=== PATIENT | male | born 1940 | race Caucasian/White ===

== ENCOUNTER → 2017-05-19 16:53 | Outpatient (CLI) | payer MEDICARE, OTHER, SELFPAY ==
[2017-05-19 17:58] LABS: Hematocrit 45.5 % (40-54); Hemoglobin 15.7 g/dl (13.0-16.5); Mean Corp Hgb Conc 34.5 g/gl (32-36); Mean Corpuscular Hgb 31.8 pg (27.0-32.0); Mean Corpuscular Volume 92.3 fL (80-94); Mean Platelet Vol. 10.3 fl (6.2-12.0); Platelet Count 266 K/mm3 (150-450); RBC Distribution Width CV 13.4 % (11.6-14.6); RBC Distribution Width SD 44.3 fl (35.1-43.9); Red Blood Count 4.93 M/mm3 (4.6-6.2)
[2017-05-19 18:08] LABS: Scan Indicated on CBC? Y/N NO
[2017-05-19 18:24] LABS: ALB/GLOB Ratio 0.9 RATIO (0.9-2.4); AST(SGOT) 10 U/L (15-37); Alanine Aminotransfer ALT/SGPT 21 U/L (16-61); Albumin, Serum 3.4 g/dL (3.2-5.0); Alkaline Phosphatase 57 U/L (45-117); Anion Gap 10 (5-15); BUN 17 mg/dL (7-18); BUN/Creat Ratio 14.9 RATIO (10-20); Chloride 103 mmol/L (98-107); Cholesterol 172 mg/dL (200); Creatinine, Serum 1.14 mg/dL (0.70-1.30); EST Glomerular Filtration Rate 66 mL/min (>60); Est Glom Filt Rate - Afr Amer 80 mL/min (>60); Globulin 3.6 g/dL (2.2-4.2); Glucose 168 mg/dL (74-106); High Density Lipoprotein 31 mg/dL; Potassium 3.8 mmol/L (3.5-5.1); Sodium Level 138 mmol/L (136-145); Thyroid Stim Hormone (TSH) 4.47 uIU/mL (0.358-3.74); Triglycerides 356 mg/dL; Very Low Density Lipoprotein 71 mg/dL (5-40)
[2017-05-21 06:38] LABS: T4 Free Direct 1.12 ng/dL (0.76-1.46)
== END ==
PROVIDERS: Family Provider Family Medicine; PCP Family Medicine; Visit Provider Family Medicine
DX: J44.9 Chronic obstructive pulmonary disease, unspecified (principal); E11.65 Type 2 diabetes mellitus with hyperglycemia
CPT/HCPCS: 36415; 80053; 80061; 84439; 84443; 85027

== ENCOUNTER → 2017-08-17 16:40 | Outpatient (CLI) | payer MEDICARE, OTHER, SELFPAY ==
--- NOTE | 2017-08-17 16:40 | DT_ITS ---
This patient was seen during an EMR downtime August 15, 2017 - August 22, 2017. This patient may have a combination of paper and electronic documentation or all paper documentation. All documentation is viewable within the e-chart portion of [facility] for each patient visit.
[2017-08-21 15:37] LABS: Thyroid Stim Hormone (TSH) 4.52 uIU/mL (0.358-3.74)
[2017-08-21 15:38] LABS: T4 Free Direct 1.13 ng/dL (0.76-1.46)
== END ==
PROVIDERS: Family Provider Family Medicine; PCP Family Medicine; Visit Provider Family Medicine
DX: E03.9 Hypothyroidism, unspecified (principal)
CPT/HCPCS: 36415; 84439; 84443

== ENCOUNTER → 2018-04-03 15:32 | Outpatient (CLI) | payer MEDICARE, OTHER, SELFPAY ==
[2017-03-25 13:59] VITALS: BMI 34.4
--- NOTE | 2018-04-03 15:37 | RAD_ITS ---
STUDY: X-RAY CHEST REASON FOR EXAM: Male, 77 years old. Coronary artery disease. TECHNIQUE: PA and lateral views of the chest. COMPARISON: None. FINDINGS: The lungs are moderate expanded. Ill-defined airspace disease with stranding to suggest chronic disease and/or atelectasis noted in the anterior lung bases. Active inflammation/infection not excluded. Vaguely nodular 2 cm left suprahilar density on the frontal view is of uncertain etiology, possibly a summation artifact. There is no demonstrated pleural abnormality. The heart size is upper normal. Normal mediastinum and ambrosio. Normal visualized pulmonary arteries. There is atherosclerotic calcification of the aortic arch and descending thoracic aorta. Normal visualized thoracic spine. Normal visualized ribs, clavicles, and shoulders. There is no demonstrated abnormality of the visualized soft tissue structures of the upper abdomen. RAD/Chest PA and Lateral IMPRESSION: 1. Patchy airspace disease of probable chronic change or atelectasis in the anterior lung bases. Active inflammation/infection not excluded. 2. Summation artifact versus nodule in the left suprahilar tissues. Comparison with any previous outside studies would be useful. If none are available, one might consider shallow frontal oblique and/or apical lordotic/antilordotic views to determine if this is a real finding. 3. Heart size upper normal with calcified thoracic aorta. No CHF. Electronically Signed: Salomon Kohli MD at 19:52 EST , Service support ,
[2018-04-03 17:51] LABS: Absolute Lymphocyte Count 1.91 X10^3/ul (0.83-4.51); Basophil# 0.02 X10^3/uL; Basophil% 0.2 % (0-1); Eosinophil# 0.08 X10^3/uL; Eosinophils% 0.8 % (0-5); Hematocrit 45.8 % (40-54); Hemoglobin 15.7 g/dl (13.0-16.5); Lymphocyte # 1.91 X10^3/ul (4.0); Lymphocyte % 19.3 % (19-41); Mean Corp Hgb Conc 34.3 g/gl (32-36); Mean Corpuscular Hgb 31.2 pg (27.0-32.0); Mean Corpuscular Volume 91.1 fL (80-94); Mean Platelet Vol. 10.4 fl (6.2-12.0); Monocyte# 0.87 X10^3/uL; Monocyte% 8.8 % (0-10); Neutrophil # 7.02 X10^3/uL (2.7-7.7); Neutrophil % 70.7 % (47-70); Platelet Count 317 K/mm3 (150-450); RBC Distribution Width CV 13.5 % (11.6-14.6); RBC Distribution Width SD 44.6 fl (35.1-43.9); Red Blood Count 5.03 M/mm3 (4.6-6.2); White Blood Count 9.9 K/mm3 (4.4-11.0)
[2018-04-03 17:52] LABS: POSITIVE COUNT NO; POSITIVE DIFFERENTIAL NO; POSITIVE MORPHOLOGY NO
[2018-04-03 18:04] LABS: BNP,B-Type NATRIURETIC PEPTIDE 119.7 pg/mL (0-100)
[2018-04-03 18:09] LABS: ALB/GLOB Ratio 0.9 RATIO (0.9-2.4); AST(SGOT) 14 U/L (15-37); Alanine Aminotransfer ALT/SGPT 29 U/L (16-61); Albumin, Serum 3.3 g/dL (3.2-5.0); Alkaline Phosphatase 65 U/L (45-117); Anion Gap 12 (5-15); BUN 13 mg/dL (7-18); BUN/Creat Ratio 11.3 RATIO (10-20); Calcium,Total 8.9 mg/dL (8.5-10.1); Chloride 98 mmol/L (98-107); Creatinine, Serum 1.15 mg/dL (0.70-1.30); EST Glomerular Filtration Rate 65 mL/min (>60); Est Glom Filt Rate - Afr Amer 79 mL/min (>60); Globulin 3.7 g/dL (2.2-4.2); Glucose 137 mg/dL (74-106); Potassium 4.2 mmol/L (3.5-5.1); Sodium Level 135 mmol/L (136-145); Thyroid Stim Hormone (TSH) 3.58 uIU/mL (0.358-3.74)
--- OUTSIDE RECORDS SUMMARY | 2018-06-06 03:40 | XMS RPT_ITS ---
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7 TRUDI PEP Performed By: #### L503.6620 #### [facility] [address] [place], [address] CBC W/DIFF, AUTOMATED Collected: 04/03/2018 Status: F Source: LATOSHA 3:41 PM [facility] REPOSITORY TYPE CODE TESTS RESULT OUT OF RANGE REFERENCE UNITS LAB L100.1000 4.4-11.0 K/mm3 Normal WBC 9.9 LAB L100.1200 4.6-6.2 M/mm3 Normal RBC 5.03 LAB L100.1300 13.0-16.5 g/dl Normal HGB 15.7 LAB L100.1400 40-54 % Normal HCT 45.8 LAB L100.1500 80-94 fL Normal MCV 91.1 LAB L100.1600 27.0-32.0 pg Normal MCH 31.2 LAB L100.1700 32-36 g/gl Normal MCHC 34.3 LAB L100.1810 11.6-14.6 % Normal RDW CV 13.5 LAB L100.1820 35.1-43.9 fl High RDW SD 44.6 LAB L100.1900 150-450 K/mm3 Normal PLT 317 LAB L100.2000 6.2-12.0 fl Normal MPV 10.4 LAB L100.2100 47-70 % High NEUT% 70.7 LAB L100.2200 19-41 % Normal LY% 19.3 LAB L100.2300 0-10 % Normal MONO% 8.8 LAB L100.2400 0-5 % Normal EO% 0.8 LAB L100.2500 0-1 % Normal BASO% 0.2 LAB L100.2550 0.0-0.9 % Normal IM GRAN % 0.200 Result Comment: IG% - Immature Granulocytes (promyelocytes, myelocytes and metamyelocytes) > 1% indicates that a LEFT SHIFT is Present. LAB L100.2620 2.0-7.7 X10 3/uL Normal Absolute Neut 7.0 LAB L100.2720 0.83-4.51 X10 3/ul Normal Absolute Lymph 1.91 Performed By: #### L100.0100, L500.4050, L501.9520 #### [facility] [address] [place], [address] COMPREHENSIVE METABOLIC Collected: 04/03/2018 Status: F Source: LAT[place] [facility] 3:41 PM [facility] REPOSITORY TYPE CODE TESTS RESULT OUT OF RANGE REFERENCE UNITS LAB L501.0100 74-106 mg/dL High GLU 137 Result Comment: Fasting Glucose result greater than or equal to 126 mg/dL suggests DIABETES MELLITUS per A.D.A. criteria. Please note revised GLUCOSE reference range effective 2017. LAB L501.1000 7-18 mg/dL Normal BUN 13 LAB L501.1100 0.70-1.30 mg/dL Normal CREAT,SERUM 1.15 Result Comment: The validity of the calculated GFR AND GFRAA in patients over 70 years has not been determined. Clinical correlation is essential. LAB L501.1110 >60 mL/min Normal EST GFR 65 Result Comment: Non- GFR Calc LAB L501.1115 >60 mL/min Normal EST GFR - AA 79 Result Comment: GFR Calc LAB L501.1300 10-20 RATIO Normal BUN/CRE 11.3 LAB L501.1500 6.4-8.2 g/dL T Normal PROT 7.0 LAB L501.1800 3.2-5.0 g/dL Normal ALB 3.3 LAB L501.1950 2.2-4.2 g/dL Normal GLOB 3.7 LAB L501.2000 0.9-2.4 RATIO Normal A/G 0.9 LAB L501.2200 8.5-10.1 mg/dL CA Normal 8.9 LAB L501.4100 15-37 U/L Low AST 14 Result Comment: Slight Hemolysis, Result may be falsely increased. LAB L501.4305 45-117 U/L Normal ALK P 65 LAB L501.4405 16-61 U/L Normal ALT 29 LAB L501.4600 0.20-1.00 mg/dL Normal T BILI 0.40 LAB L501.5300 136-145 mmol/L Low NA 135 LAB L501.5600 3.5-5.1 mmol/L Normal K 4.2 Result Comment: Slight Hemolysis, Result may be falsely increased. LAB L501.5900 98-107 mmol/L Normal CL 98 LAB L501.6100 21.0-32.0 mmol/L Normal CO2 25.0 LAB L501.6200 5-15 Normal GAP 12 Performed By: #### L100.0100, L500.4050, L501.9520 #### [place] [facility] [address] [place], [address] THYROID STIM HORMONE Collected: 04/03/2018 Status: F Source: LATOSHA (TSH) 3:41 PM [facility] REPOSITORY TYPE CODE TESTS RESULT OUT OF RANGE REFERENCE UNITS LAB L501.9520 0.358-3.74 uIU/mL Normal TSH 3.58 Performed By: #### L100.0100, L500.4050, L501.9520 #### [facility] [address] [place], [address] CHEST PA AND LATERAL Observed: 04/03/2018 Status: F Source: LATOSHA 3:37 PM [facility] REPOSITORY [facility] Imaging Services [address] [place] [address] Chest PA and Lateral MR#: [id number] Acct: [id number] Name: PAMELA TUCKER Rep #: [id number] : 1940 M 77 From: Eamon Kohli MD PCP: Seferino Grider MD Status: REG CLI Study: Chest PA and Lateral Date of Exam: 04/03/18 Exam# [id number] Ordering Dr: Contreras Grider MD STUDY: X-RAY CHEST REASON FOR EXAM: Male, 77 years old. Coronary artery disease. TECHNIQUE: PA and lateral views of the chest. COMPARISON: None. FINDINGS: The lungs are moderate expanded. Ill-defined airspace disease with stranding to suggest chronic disease and/or atelectasis noted in the anterior lung bases. Active inflammation/infection not excluded. Vaguely nodular 2 cm left suprahilar density on the frontal view is of uncertain etiology, possibly a summation artifact. There is no demonstrated pleural abnormality. The heart size is upper normal. Normal mediastinum and ambrosio. Normal visualized pulmonary arteries. There is atherosclerotic calcification of the aortic arch and descending thoracic aorta. Normal visualized thoracic spine. Normal visualized ribs, clavicles, and shoulders. There is no demonstrated abnormality of the visualized soft tissue structures of the upper abdomen. RAD/Chest PA and Lateral IMPRESSION: 1. Patchy airspace disease of probable chronic change or atelectasis in the anterior lung bases. Active inflammation/infection not excluded. 2. Summation artifact versus nodule in the left suprahilar tissues. Comparison with any previous outside studies would be useful. If none are available, one might consider shallow frontal oblique and/or apical lordotic/antilordotic views to determine if this is a real finding. 3. Heart size upper normal with calcified thoracic aorta. No CHF. Electronically Signed: Salomon Kohli MD at 19:52 EST , Service support , CC: Seferino Grider MD Binder Lockstitch: Signed DOWNTIME REPORT Observed: 09/01/2017 Status: F Source: ZELIENOPLE 1:16 PM [facility] REPOSITORY [facility] Medical Records Department [address] [place] [address] Downtime Report MR#: [id number] Acct: [id number] Name: PAMELA TUCKER Rep #: [id number] : 1940 77 From: Darion Macdonald PCP: Seferino Grider MD Status: REG CLI This patient was seen during an EMR downtime August 15, 2017 - August 22, 2017. This patient may have a combination of paper and electronic documentation or all paper documentation. All documentation is viewable within the e-chart portion of [email or web address] for each patient visit. THYROID STIM HORMONE Collected: 08/17/2017 Status: F Source: ZELIENOPLE (TSH) 4:40 PM [facility] REPOSITORY Order Comment: RESULT(S) PREVIOUSLY REPORTED ON MANUAL REQUISITION DURING DOWNTIME. TYPE CODE TESTS RESULT OUT OF RANGE REFERENCE UNITS LAB L501.9520 0.358-3.74 uIU/mL High TSH 4.52 Performed By: #### L501.9520, L506.0400 #### [facility] [address] [place], [address] T4 FREE DIRECT Collected: 08/17/2017 Status: F Source: ZELIENOPLE 4:40 PM [facility] REPOSITORY Order Comment: RESULT(S) PREVIOUSLY REPORTED ON MANUAL REQUISITION DURING DOWNTIME. TYPE CODE TESTS RESULT OUT OF RANGE REFERENCE UNITS LAB L506.0400 0.76-1.46 ng/dL Normal T4 FREE 1.13 DIRECT Performed By: #### L501.9520, L506.0400 #### [facility] [address] [place], [place], [address] CBC-COMPLETE BLOOD CNT Collected: 05/19/2017 Status: F Source: LATOSHA NO DIFF 4:56 PM [facility] REPOSITORY Order Comment: Order Date: 09/08/16 Order Info: [id number] - CBC TYPE CODE TESTS RESULT OUT OF RANGE REFERENCE UNITS LAB L100.1000 4.4-11.0 K/mm3 Normal WBC 9.0 LAB L100.1200 4.6-6.2 M/mm3 Normal RBC 4.93 LAB L100.1300 13.0-16.5 g/dl Normal HGB 15.7 LAB L100.1400 40-54 % Normal HCT 45.5 LAB L100.1500 80-94 fL Normal MCV 92.3 LAB L100.1600 27.0-32.0 pg Normal MCH 31.8 LAB L100.1700 32-36 g/gl Normal MCHC 34.5 LAB L100.1810 11.6-14.6 % Normal RDW CV 13.4 LAB L100.1820 35.1-43.9 fl High RDW SD 44.3 LAB L100.1900 150-450 K/mm3 Normal PLT 266 LAB L100.2000 6.2-12.0 fl Normal MPV 10.3 Performed By: #### L100.0500, L500.4050, L500.4100, L501.9520 #### [facility] [address] [place], [place], [address] COMPREHENSIVE METABOLIC Collected: 05/19/2017 Status: F Source: LATOSHA PROFIL 4:56 PM [facility] REPOSITORY Order Comment: PLEASE ADD T4F TO BLOOD DRAWN 05/19/17 PER Order Date: 09/08/16 Order Info: 0786-1 - CMP Order Info: [id number] - LIPID Order Info: 3016-3 - TSH TYPE CODE TESTS RESULT OUT OF RANGE REFERENCE UNITS LAB L501.0100 74-106 mg/dL High GLU 168 Result Comment: Fasting Glucose result greater than or equal to 126 mg/dL suggests DIABETES MELLITUS per A.D.A. criteria. Please note revised GLUCOSE reference range effective 2017. LAB L501.1000 7-18 mg/dL Normal BUN 17 LAB L501.1100 0.70-1.30 mg/dL Normal CREAT,SERUM 1.14 Result Comment: The validity of the calculated GFR AND GFRAA in patients over 70 years has not been determined. Clinical correlation is essential. LAB L501.1110 >60 mL/min Normal EST GFR 66 Result Comment: Non- GFR Calc LAB L501.1115 >60 mL/min Normal EST GFR - AA 80 Result Comment: GFR Calc LAB L501.1300 10-20 RATIO Normal BUN/CRE 14.9 LAB L501.1500 6.4-8.2 g/dL T Normal PROT 7.0 LAB L501.1800 3.2-5.0 g/dL Normal ALB 3.4 LAB L501.1950 2.2-4.2 g/dL Normal GLOB 3.6 LAB L501.2000 0.9-2.4 RATIO Normal A/G 0.9 LAB L501.2200 8.5-10.1 mg/dL CA Normal 9.0 LAB L501.4100 15-37 U/L Low AST 10 LAB L501.4305 45-117 U/L Normal ALK P 57 LAB L501.4405 16-61 U/L Normal ALT 21 Result Comment: Please note revised ALT reference range effective 2017. LAB L501.4600 0.20-1.00 mg/dL Normal T BILI 0.40 LAB L501.5300 136-145 mmol/L Normal NA 138 LAB L501.5600 3.5-5.1 mmol/L Normal K 3.8 LAB L501.5900 98-107 mmol/L Normal CL 103 LAB L501.6100 21.0-32.0 mmol/L Normal CO2 25.0 LAB L501.6200 5-15 Normal GAP 10 Performed By: #### L100.0500, L500.4050, L500.4100, L501.9520 #### [facility] [address] [place], [place], [address] LIPID PROFILE Collected: 05/19/2017 Status: F Source: LATOSHA 4:56 PM [facility] REPOSITORY Order Comment: PLEASE ADD T4F TO BLOOD DRAWN 05/19/17 PER Order Date: 09/08/16 Order Info: [id number] - CMP Order Info: [id number] - LIPID Order Info: 3016-3 - TSH TYPE CODE TESTS RESULT OUT OF RANGE REFERENCE UNITS LAB L501.4900 200 mg/dL Normal CHOL 172 Result Comment: <200 mg/dL Desirable 200-240 mg/dL Borderline >240 mg/dL High Risk LAB L501.5000 mg/dL High TRIG 356 Result Comment: The drugs N-Acetylcysteine and Metamizole may falsely depress this assay. Serum Triglycerides Reference Interval Normal <150 mg/dL Borderline high 150 - 199 mg/dL High 200 - 499 mg/dL Very High > or = 500 mg/dL LAB L501.6400 mg/dL Low HDL 31 Result Comment: The drugs N-Acetylcysteine and Metamizole may falsely depress this assay. Reference Range HDL <40 mg/dL Low HDL Cholesterol HDL >or= 60 mg/dL High HDL Cholesterol LAB L501.6500 0-130 mg/dL Normal LDL 70 LAB L501.6600 5-40 mg/dL High VLDL 71 Performed By: #### L100.0500, L500.4050, L500.4100, L501.9520 #### [facility] [address] [place], [address] THYROID STIM HORMONE Collected: 05/19/2017 Status: F Source: LATOSHA (TSH) 4:56 PM [facility] REPOSITORY Order Comment: PLEASE ADD T4F TO BLOOD DRAWN 05/19/17 PER Order Date: 09/08/16 Order Info: [id number] - CMP Order Info: [id number] - LIPID Order Info: 3016-3 - TSH TYPE CODE TESTS RESULT OUT OF RANGE REFERENCE UNITS LAB L501.9520 0.358-3.74 uIU/mL High TSH 4.47 Performed By: #### L100.0500, L500.4050, L500.4100, L501.9520 #### [facility] [address] [place], [address] T4 FREE DIRECT Collected: 05/19/2017 Status: F Source: LATOSHA 4:56 PM [facility] REPOSITORY Order Comment: PLEASE ADD T4F TO BLOOD DRAWN 05/19/17 PER Order Date: 09/08/16 Order Info: 0786-1 - CMP Order Info: [id number] - LIPID Order Info: 3016-3 - TSH TYPE CODE TESTS RESULT OUT OF RANGE REFERENCE UNITS LAB L506.0400 0.76-1.46 ng/dL Normal T4 FREE 1.12 DIRECT Performed By: #### L506.0400 #### [facility] [address] [place], [address] ALLERGIES ALLERGIES DATE TYPE / CODE NAME / CODE REACTION SEVERITY SOURCE 03/25/2017 Drug Butuwmb-Ekb-Mnc intollerance, SV [facility] Allergy/416 Reductase myalgias [facility] 234969(SNOM Inhibitor/[id number] Repository ED CT) 5133(RXNORM) ENCOUNTERS ENCOUNTERS ADMIT/DISCHARGE ACCOUNT ADMITTING ENCOUNTER LOCATION SOURCE NUMBER CLASS 04/03/2018 [id number] [place] [facility] ing:MTLAB Repository 08/17/2017 [id number] Ambulatory [place] 1 [facility] ing:MFPLAB Repository 05/19/2017 [id number] [facility] ing:MFPLAB Repository PAYERS PAYERS ENCOUNTER GUARANTOR PAYER SUBSCRIBER SOURCE 04/03/2018 PAMELA Tran Primary PAMELA TUCKER[address] Insurance:MEDICARE [facility]: [facility] PART A [facility] [id number] Number: Repository [id number]: [phone] [id number] [phone] () Date:2018-04-03 04/03/2018 Secondary PAMELA [address] Insurance:[facility]: [facility] Number: [id number] [id number] Repository Date:[id number], [place] [address]CR: 04/03/2018 Tertiary NOT GIV[place]UNK [place] Insurance:SELF PAY [facility] Number: Effective Repository Date:2018-04-03 08/17/2017 PAMELA E Primary PAMELA E [place] [id number] Insurance:MEDICARE MARSHALLDOB: Community FAIZAN PART A [id number] [place] Number: Repository [id number]: 330 [id number] [phone] () Date:2017-08-17 08/17/2017 Secondary PAMELA E [place] Insurance[facility]ol[facility] Number: [id number] [facility] [id number] Repository Date:[id number] [facility] [address] [address]BE: 08/17/2017 Tertiary NOT GIVENUNK [place] Insurance:SELF PAY [facility] Number: Effective Repository Date:2017-08-17 05/19/2017 PAMELA E Primary PAMELA E [place] [id number] Insurance:[facility]IC[facility] Community FAIZAN PART A [id number] [place] Number: Repository [address]Jos: 330 [id number] [phone] () Date:2017-05-19 05/19/2017 Secondary PAMELA E [place] Insurance:AARPPolicy [facility] Number: [id number] Hospital [id number] Repository Date:1200-68-[address], [place] [address]VF: 05/19/2017 Tertiary NOT GIVENUNK [place] Insurance:SELF PAY [facility] Number: Effective Repository Date:2017-05-19
== END ==
PROVIDERS: Family Provider Family Medicine; PCP Family Medicine; Referring Provider Family Medicine; Visit Provider Family Medicine
DX: I25.10 Atherosclerotic heart disease of native coronary artery without angina pectoris (principal); R60.0 Localized edema
CPT/HCPCS: 36415; 71046; 80053; 83880; 84443; 85025

== ENCOUNTER → 2018-04-13 14:41 | Outpatient (CLI) | payer MEDICARE, OTHER, SELFPAY ==
--- NOTE | 2018-04-13 14:44 | ECHOD_ITS ---
Reason For Study: CAD/ASHD Procedure This was a 2D Doppler, Color Flow transthoracic echocardiogram. The study was technically difficult. Exam performed in department. Left Ventricle Normal LV size. Mild concentric left ventricular hypertrophy. Segmental dysfunction with preserved ejection fraction (see wall motion). The estimated ejection fraction is 55 %. Posterior-Basal: Hypokinetic. Infero-Basal: Akinetic. Mid-Posterior: Hypokinetic. Mid-Inferior: Hypokinetic. Inferior [place] : Hypokinetic. Right Ventricle Normal RV size. Normal systolic function. Atria The left atrium is mildly enlarged. Normal right atrium. No doppler evidence for ASD. Mitral Valve There is no mitral annular calcification. Normal mitral valve. The mitral valve chordae are thickened and/or calcified. Trivial mitral valve insufficiency. Tricuspid Valve Normal tricuspid valve. Trivial tricuspid valve insufficiency. Right ventricular systolic pressure estimated to be 22 mmHg. Aortic Valve Trisinus/trileaflet aortic valve. Mild diffuse aortic valve thickening. Mild focal aortic valve calcification. Pulmonic Valve The pulmonic valve is not well visualized. Trivial pulmonic valve insufficiency. Great Vessels Normal sized aortic root. Pericardium/Pleural No pericardial effusion. MMode/2D Measurements & Calculations LVIDd: 5.4 cm IVSd: 1.3 cm Ao root diam: 3.2 cm LVIDs: 4.1 cm LVPWd: 1.3 cm RVDd: 3.1 cm FS: 24.5 % LAV(MOD-bp): 67.7 ml LA A4 area: 21.4 cm2 LA dimension(2D): 3.9 cm LAV(MOD-bp) Indexed: 31.4 ml/m2 LAV(MOD-sp2): 67.7 ml LAV(MOD-sp4): 67.8 ml RA A4 area: 16.8 cm2 Doppler Measurements & Calculations MV E max oir: 104.9 cm/sec Lat Peak E' Ori: 8.2 cm/sec Med Peak E' Ori: 7.6 cm/sec MV A max ori: 88.7 cm/sec E/E' lat: 12.8 E/E' med: 13.8 MV E/A: 1.2 Ao V2 max: 172.8 cm/sec LV V1 max: 108.0 cm/sec PA V2 max: 104.0 cm/sec Ao max P.0 mmHg LV V1 max P.7 mmHg TR max ori: 215.0 cm/sec TR max P.5 mmHg Interpretation Summary The study was technically difficult. Segmental dysfunction with preserved ejection fraction (see wall motion). The estimated ejection fraction is 55 %. Mild concentric left ventricular hypertrophy. The left atrium is mildly enlarged. The mitral valve chordae are thickened and/or calcified. Trivial mitral valve insufficiency. Trivial tricuspid valve insufficiency. Mild diffuse aortic valve thickening. Mild focal aortic valve calcification. Trivial pulmonic valve insufficiency. Right ventricular systolic pressure estimated to be 22 mmHg. Transmitral diastolic flow velocities suggest diastolic dysfunction (pseudonormal pattern). Ordering Physician: Seferino Grider Referring Physician: Seferino Grider Performed By: Leeanna Silva, DAYANA, RVT
--- NOTE | 2018-04-13 15:28 | CT_ITS ---
We are attempting to reach Seferino Grider MD to discuss findings. An addendum with communication details will be sent when the communication is complete. STUDY: CT CHEST WITHOUT CONTRAST REASON FOR EXAM: Male, 77 years old. Abnormal T the lung. RADIATION DOSAGE (If Supplied By Facility): CTDIvol = ( 18.92 ) mGy, DLP = ( 638.35 ) mGycm TECHNIQUE: Transaxial imaging was performed without the administration of intravenous contrast material. Multiplanar coronal and sagittal images were reformatted. Individualized dose optimization techniques were used for this CT. COMPARISON: Chest, April 03, 2018. FINDINGS: The lungs are well expanded. In the medial left upper lobe, there is an ill-defined 2 x 2.1 x 3 cm soft tissue density which correlates with the abnormal findings seen on the plain film. This is best seen on images 13 through 30 of series 4. On image 21 there is a calcified 3 mm nodule seen in the subpleural location of the left upper lobe. There is a 3 mm calcified granuloma in the left lower lobe on image 47 as well as a 3 mm calcified granuloma the right lower lobe on image 61 a 4 mm calcified granuloma is noted in the right lower lobe on image 67. Peripheral calcified granulomata are also seen in the right lower lobe on images 76,79 and 90.. There is a questionable soft tissue nodule in the subpleural left lower lobe seen on image 60 which measures 7 x 3 mm. There is no demonstrated pleural abnormality. Heart is normal in size. There is calcification in the left ventricle. Normal pericardium. There are calcifications of the coronary arteries. There is a ill-defined soft tissue mass extending from the aortopulmonic window outward into the lower hilum. This measures 6.3 x 3.8 x 3.5 cm. There is a 4 mm calcified lymph node in the azygoesophageal window. There is a 2.5 x 2.2 x 2.7 cm soft tissue mass in the left hilum. Small calcified lymph nodes are also seen in both ambrosio. Normal unenhanced pulmonary arteries. There is atherosclerotic calcification of the aortic arch with tortuosity and elongation of the aortic arch and descending thoracic aorta. There are multi-level degenerative changes of the thoracic spine. There is a low attenuation area in the anterior aspect of segment 2 of the liver measuring roughly 3 x 4.7 x 2.7 cm. The liver appears otherwise grossly normal. There is a soft tissue mass in the right adrenal gland measuring 1.6 x 2.3 x 2.6 cm which is not low in attenuation. Metastatic disease versus adenoma. The remainder the abdomen is grossly unremarkable. CT/Chest without Contrast IMPRESSION: 1. Right upper lobe soft tissue mass correlates with the area of abnormality on recent plain film. It is suspicious for malignancy. 2. Soft tissue mass in the right lower lobe. Question metastasis. 3. Mediastinal and left hilar adenopathy. 4. Old granulomatous disease. 5. Atherosclerotic changes of the coronary arteries and thoracic aorta. 6. Low-attenuation left liver mass. Question metastasis. 7. Left right adrenal mass. Metastasis versus adenoma. Electronically Signed: Gene Del Cid DO at 16:15 EST Tel [phone], Service support ,
== END ==
PROVIDERS: Family Provider Family Medicine; PCP Family Medicine; Referring Provider Family Medicine; Visit Provider Family Medicine
DX: I25.10 Atherosclerotic heart disease of native coronary artery without angina pectoris (principal); R91.8 Other nonspecific abnormal finding of lung field
CPT/HCPCS: 71250; 93306

== ENCOUNTER → 2018-05-15 07:04 | Outpatient (CLI) | payer MEDICARE, OTHER, SELFPAY ==
--- NOTE | 2018-05-15 08:00 | PET_ITS ---
EXAMINATION: FDG PET/CT INDICATIONS: A 77-year-old male with apparent history of pulmonary nodularity. COMPARISON EXAMINATION: CT of the chest report dated 04/13/18 INDEX LESION SIZE SUV INTERPRETATION Left upper hemithorax pulmonary parenchyma, left upper lobe 21.4 x 31.6-mm (frame 248) 6.1 Fulfills quantitative criteria for viable neoplasm Mediastinum, left thoracic perihilum 5.3 x 7.1-cm (largest) (frame 237) 8.2 (max) Fulfills quantitative criteria for viable neoplasm Right axilla 13.4-mm (frame 258) 3.1 Fulfills quantitative criteria for viable neoplasm Left lobe hepatic parenchyma segment II 64.9-mm (frame 189) 8.1 ratio > 2.0 Fulfills quantitative criteria for viable neoplasm Right adrenal gland 7.1 Fulfills quantitative criteria for viable neoplasm TECHNIQUE: Following the intravenous administration of 18.58 mCi of F-18 deoxyglucose via the left forearm, multiplanar image acquisitions of the neck, chest, abdomen and pelvis to level of mid thigh, obtained at one hour post radiopharmaceutical administration contemporaneously interpreted with the current CT of the neck, chest, abdomen and pelvis to level of mid thigh, dated 05/15/[address] of the chest report dated 04/13/18 reveal: SERUM GLUCOSE LEVEL: 119 mg/dl. HEIGHT: 68 inches. WEIGHT: 220 lbs. FINDINGS: 1. Increased glucose metabolism is defined in the left upper anterior hemithorax pulmonary parenchyma, left upper lobe, generating a calculated maximal standard uptake value of 6.1. The maximal axial diameter of the corresponding parenchymal density-mass on review of CT of the chest dated 05/15/18 is 21.4-mm (transverse) x 31.6-mm (AP). 2. Enhanced FDG concentration is demonstrated in the carinal level mediastinum and left thoracic perihilum generating a calculated maximal standard uptake value of 8.2. The maximal axial diameter of the corresponding metabolic, morphologic abnormality aggregate in presentation is 5.3-cm (transverse) x 7.1-cm (AP). 3. Focal increased radiopharmaceutical concentration is defined in a single nodular presentation in the right axilla rendering a calculated maximal standard uptake value of 3.1. The maximal axial diameter of the corresponding hypermetabolic soft tissue density on review of CT of the chest dated 05/15/18 is 13.4-mm (AP). 4. Facilitated labeled glucose distribution is defined in the left lobe of the liver which appears to involve segment II anteriorly rendering a calculated maximal standard uptake value of 8.1, with a lesion to liver background ratio greater than 2.0. The maximal axial diameter of the corresponding metabolic abnormality on review of CT of the abdomen dated 05/15/18 is 64.9-mm (transverse). 5. Asymmetric facilitated fluorine labeled glucose uptake is visualized in the right upper abdomen contiguous to the prominent size right adrenal gland. The calculated maximal standard uptake value is 7.1. 6. Normal physiologic distribution of the radiopharmaceutical is apparent in the splenic parenchyma, both renal units, bladder and visualized intestinal tract. The visualized portion of the cerebral cortex demonstrate symmetric and preserved glucose metabolism. Diffuse radiopharmaceutical concentration is noted in all four quadrants of the abdomen and pelvis. There is apparent soft tissue within the context of the left maxillary sinus without evidence of quantitatively significant increased glucose metabolism. Pertinent CT findings are as follows: CHEST: There is atherosclerotic calcification defined in the thoracic aorta without evidence of dilatation-aneurysm formation. Coronary arterial calcification is observed. Bilateral axillary and scattered calcified and non-calcified mediastinal soft tissue densities are ametabolic. There are no additional parenchymal densities-nodules defined in the right-left hemithorax demonstrating discernible increased glucose metabolism. Additional calcified and non-calcified parenchymal densities noted in the bilateral hemithorax are non-glucose avid. ABDOMEN AND PELVIS: There is atherosclerotic calcification defined in the abdominal aorta without evidence of dilatation-aneurysm formation. Abdominal-pelvic arterial calcification is observed. There is borderline fatty metamorphosis-steatosis defined in the hepatic parenchyma. Increased attenuation is noted throughout the visualized gallbladder. Fat containing bilateral inguinal hernias are noted. Right-left inguinal soft tissue densities are non-glucose avid. SKELETAL: Degenerative changes are noted in the cervical, thoracic and lumbar spine. PET/PET/CT Tumor Base -Thigh Init IMPRESSION: 1. 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 2. Increased glucose concentration observed in the left upper hemithorax pulmonary parenchyma, left upper lobe, fulfills quantitative criteria for viable neoplasm. (Parikh et al, Annals of Internal Medicine, 138:724, 2003). 3. Viable neoplastic transformation is defined in the carinal level mediastinum, left thoracic perihilum. (Kendall dutton al, Journal of Clinical Oncology 16:2142, 1998). 4. Facilitated FDG uptake noted in the right axilla in a single nodular presentation fulfills quantitative criteria for malignant transformation. 5. Viable neoplasm appears evident in the left lobe of the hepatic parenchyma. (Dorene et al, Archives of Surgery, 133:510 1998). 6. The increase in glucose metabolism demonstrated in the right adrenal gland fulfills quantitative criteria for viable neoplasm. (Dionte and Mack, Journal of Nuclear Medicine 42:151 P2002 Ben, Journal of Nuclear Medicine 45:1340, 2004). Electronic Signature Davis Osullivan D.O. Electronically Signed: Davis Osullivan DO at 12:42 EST Tel , Service support ,
--- NOTE | 2018-05-16 17:18 | PFT ---
INTRODUCTION: The patient is a 77-year-old male that presents for pulmonary function studies secondary to a diagnosis of lung nodule. Respiratory therapy reports good patient effort. Bronchodilators were used during testing. INTERPRETATION: Forced expiration spirometry demonstrates the presence of a moderately severe large airways obstructive ventilatory defect. There was no significant response to aerosolized bronchodilators, based upon strict ATS criteria. Spirograms are of fair quality and plateau gradually. Body plethysmography was performed and reveals lung volumes to be within normal limits. Diffusing capacity by single breath CO is also within normal limits at 72% of predicted. IMPRESSION: These pulmonary function studies demonstrate the presence of an irreversible moderately severe large airways obstructive ventilatory defect. Lung volumes and diffusing capacity are within normal limits.
== END ==
PROVIDERS: Family Provider Family Medicine; PCP Family Medicine
DX: R91.1 Solitary pulmonary nodule (principal); R59.0 Localized enlarged lymph nodes; E27.9 Disorder of adrenal gland, unspecified; K76.9 Liver disease, unspecified; J41.8 Mixed simple and mucopurulent chronic bronchitis
CPT/HCPCS: 78815; 94060; 94726; 94729; A9552

== ENCOUNTER → 2018-05-29 09:02 | Outpatient (CLI) | payer MEDICARE, OTHER, SELFPAY ==
[2018-05-29 09:33] LABS: Platelet Count 316 K/mm3 (150-450)
[2018-05-29 09:38] VITALS: BP 128/81; PULSE 71; RESP 18; O2SAT 92; BMI 33.4
[2018-05-29 09:43] LABS: Prothrombin Time (Protime)PT. 13.4 SECONDS (11.7-14.9)
[2018-05-29 09:44] LABS: Partial Thromboplast Time 35.6 Seconds (24.1-36.2)
--- NOTE | 2018-05-29 10:00 | CT_ITS ---
PROCEDURE: CT-GUIDED CORE BIOPSY OF LIVER BIOPSY LIVER MASS Individualized dose optimization techniques were used for this CT. INDICATION: Male, 77 [address] Liver mass CT guidance CONSENT: The risks, benefits and alternatives to the procedure were explained to the patient, and the patient agreed to the procedure and signed the consent. SEDATION: Intermittent the intravenous and demonstration of Versed and fentanyl by nursing staff under continuous cardiopulmonary monitoring. 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 PROCEDURE/TECHNIQUE: The risks, benefits, and alternatives to the procedure were explained to patient, and the patient agreed to the procedure and signed a consent form for the procedure. A timeout was performed to confirm the patient's identity, the type of procedure, to be performed and the site of entry. Patient was positioned supine on the CT scan table. Under CT guidance using sterile technique and after infiltration of the skin and subcutaneous soft tissues with 40 mL of lidocaine 1% an 18-gauge core biopsy was introduced in the liver mass in the left lobe previously described.Multiple core samples were obtained and were placed with in formalin solution and sent to the lab for evaluation. Touch prep slides were examined by the pathologist at the procedure. FINDINGS: Successful CT-guided core biopsy of liver mass. CT/Biopsy/Inj or Needle Placement IMPRESSION: Successful CT-guided core biopsy of a liver mass. Electronically Signed: Oscar Phan, at 16:12 EDT Tel , Service support ,
[2018-05-29 10:30] VITALS: BP 160/47; PULSE 71; RESP 18; O2SAT 96
[2018-05-29 10:40] VITALS: BP 166/59; PULSE 79; RESP 18; O2SAT 95
[2018-05-29 11:17] VITALS: BP 130/74; PULSE 78; RESP 18; O2SAT 95
== END ==
PROVIDERS: Family Provider Family Medicine; PCP Family Medicine
DX: C78.7 Secondary malignant neoplasm of liver and intrahepatic bile duct (principal); C80.1 Malignant (primary) neoplasm, unspecified
CPT/HCPCS: 47000; 36415; 77012; 85049; 85610; 85730; 88172; 88305; 88307; 88313; 88341; 88342; J7040

== ENCOUNTER → 2018-06-15 12:42 | Outpatient (CLI) | payer MEDICARE, OTHER, SELFPAY ==
[2018-06-08 12:00] VITALS: BMI 33.7
--- NOTE | 2018-06-15 12:47 | RAD_ITS ---
STUDY: X-RAY - ORBITS REASON FOR EXAM: Male, 77 years old. This study is being performed as a clearance examination for exclusion of orbital metal, prior to the performance of an MRI examination. TECHNIQUE: 2 view(s) of the orbits were obtained. COMPARISON: None. FINDINGS: Normal bilateral orbits without a metallic orbital foreign body. Normal visualized facial bones. Normal paranasal sinuses. Normal soft tissue structures. RAD/Orbits for Foreign Body IMPRESSION: No demonstrated metallic orbital foreign body. Patient cleared for an MRI examination. Electronically Signed: Enio Norman DO at 13:20 EDT Tel , Service support ,
--- NOTE | 2018-06-15 15:35 | CT_ITS ---
STUDY: CT BRAIN WITH AND WITHOUT CONTRAST REASON FOR EXAM: Male, 77 years old. Neuroendocrine cancer of lung RADIATION DOSAGE (If Supplied By Facility): CTDIvol = ( 44.99 ) mGy, DLP = ( 1547.23 ) mGycm TECHNIQUE: Transaxial CT imaging of the brain was performed pre and post contrast administration. The examination was performed with intravenous administration of 50 IV Isovue 370. Individualized dose optimization techniques were used for this CT. COMPARISON: None. FINDINGS: Normal soft tissue structures. Normal calvarium. Normal size ventricles and extra-axial spaces for the patient's age. There are areas of decreased attenuation within the white matter tracts of the supratentorial brain, consistent with microvascular disease changes. Normal basal ganglia and thalami. Normal brainstem. Normal cerebellum. There is no intracranial hemorrhage. There are no findings of an acute ischemic infarction. Normal visualized paranasal sinuses. CT/Brain/Head W/WO Contrast IMPRESSION: No CT evidence of intracranial metastatic disease. Electronically Signed: Meir Ramirez MD at 21:10 EDT Tel , Service support ,
== END ==
PROVIDERS: Family Provider Family Medicine; PCP Family Medicine; Referring Provider Internal Medicine Hematology & Oncology; Visit Provider Internal Medicine Hematology & Oncology
DX: C7A.8 Other malignant neuroendocrine tumors (principal)
CPT/HCPCS: 70030; 70470; 80053; 85025; Q9967; A4216

== ENCOUNTER 2018-06-19 10:29 | Day surgery (SDC) | payer MEDICARE, OTHER, SELFPAY ==
[2018-06-12 13:52] VITALS: BMI 33.4
--- NOTE | 2018-06-12 15:52 | HP_ITS ---
Intake Vital Signs 06/12/18 Height 5 ft 8 in 06/12/18 Weight: 220 lb 06/12/18 Body Mass Index (BMI) 33.4 06/12/18 Blood Pressure 119/70 06/12/18 Blood Pressure Location Rt brachial 06/12/18 Blood Pressure Position Sitting 06/12/18 Respiratory Rate 14 06/12/18 Pulse Rate 58 L 06/12/18 Pulse Source Monitor 06/12/18 Temperature 98.0 F 06/12/18 Temperature Source Oral 06/12/18 Pulse Ox 90 06/12/18 Oxygen Delivery Method room air 06/12/18 Body Mass Index (BMI) 33.7 Intake Visit Reasons: PORT PLACEMENT Brim Flexer Required: No Is patient in pain?: No Allergies Dawrjvn-Htr-Wjj Reductase Inhibitor Allergy (Severe, Verified 06/12/18 13:53) intollerance, myalgias Medications aspirin 325 mg tablet 325 mg PO QDAY 02/17/17 [History Confirmed 06/12/18] insulin lispro protamine-lispro 100 unit/mL (75-25) subcutaneous susp 10 unit SC DIRECTED ml 02/17/17 [History Confirmed 06/12/18] nitroglycerin 0.4 mg sublingual tablet 0.4 mg SUBLINGUAL Q5M PRN 02/17/17 [History Confirmed 06/12/18] metformin ER 1,000 mg 24 hr tablet,extended release 2,000 mg PO BID tab 03/25/17 [History Confirmed 06/12/18] clopidogrel 75 mg tablet 75 mg PO QDAY #90 tab 03/13/18 [Rx Confirmed 06/12/18] hydrochlorothiazide 25 mg tablet 25 mg PO QDAY #90 tab 03/13/18 [Rx Confirmed 06/12/18] metoprolol tartrate 50 mg tablet 50 mg PO BID #180 tab 03/13/18 [Rx Confirmed 06/12/18] pravastatin 20 mg tablet 20 mg PO QHS #90 tab 03/13/18 [Rx Confirmed 06/12/18] amlodipine 2.5 mg tablet 2.5 mg PO QDAY #90 tab 05/10/18 [Rx Confirmed 06/12/18] Metoclopramide [Reglan] 10 mg PO 4X/DAY PRN 15 Days #60 tab 06/08/18 [Rx Confirmed 06/12/18] Ondansetron [Zofran] 8 mg PO Q8H PRN PRN #30 tab 06/08/18 [Rx Confirmed 06/12/18] PFSH Medical History PVD (peripheral vascular disease) (Chronic) Neuroendocrine carcinoma of lung (Acute) Liver metastases (Acute) Regional lymph node metastasis present (Acute) Diabetes (Acute) HLD (hyperlipidemia) (Chronic) HTN (hypertension) (Chronic) Subsequent ST elevation (STEMI) myocardial infarction of inferior wall (Chronic) Atherosclerotic heart disease of [place] coronary artery without angina pectoris (Chronic) Ischemic cardiomyopathy (Chronic) Paroxysmal supraventricular tachycardia (Chronic) Paroxysmal ventricular tachycardia (Chronic) High risk medication use (Chronic) Edema (Chronic) Surgical History Hx of colonoscopy (Acute) Hx of heart artery stent (Acute) Hx of cardiac catheterization (Acute) H/O: hemorrhoidectomy (Acute) Hx of inguinal hernia surgery (Acute) History of ankle surgery (Acute) H/O transurethral resection of prostate (Chronic) S/P PTCA (percutaneous transluminal coronary angioplasty) (Chronic 05/23/07) Family History Father Cancer Prostate cancer Prostate cancer Mother Heart disease Breast cancer Brother Leukemia FH: CABG (coronary artery bypass surgery) Prostate cancer Sister Breast cancer Social History Smoking Status: Current every day smoker alcohol intake: never substance use type: does not use caffeine: Yes Type: coffee what type of physical activity do you participate in: none seatbelt use: always do you feel safe at home: Yes HPI HPI HPI: HPI HPI Surgical H&P: Yes HPI: PAMELA TUCKER, is a 77 M who presents to the office today for port placement for chemotherapy due to neuroendocrine left-sided lung cancer with metastases. Patient was diagnosed after PCP ordered chest x-ray for the workup CT of the chest as well as PET scan did reveal metastatic disease. ROS General General: Yes weight change and appetite Gastro Gastrointestinal: Yes abdominal pain, Yes nausea or vomiting, No diarrhea, No constipation, No blood in stool, No acid reflux, No hemorrhoids, No ulcers, No gallbladder problem, No black,tarry stools Exam Const General: cooperative, comfortable, no acute distress Neck Neck: supple Chest Other: Inspection of upper chest normal GI Inspection: non-distended Palpation: soft, no guarding, nontender Extrem General: other (left LE powers with weeping wounds, right LE-no open wounds) Assessment & Plan Problems 1. Encounter for adjustment or management of vascular access device Z45.2 2. Neuroendocrine carcinoma of lung C7A.8 3. Liver metastases C78.7 Plan I have discussed above with the patient- Port-a-Cath placement. Right IJ possible left Port-A-Cath placement, and have patient stop his Plavix and aspirin 325mg 5 days prior to procedure. Will check with Dr. Call's office to make sure this is okay, if needed we will put him back on a baby aspirin. Patient has been counseled as to the risks/benefits of the procedure. I have explained the risks of the surgery, including but not limited to: infection, bleeding, injury to any blood vessels/nerves, injury to lungs (such as pneumothorax or hemothorax and need for chest tube), not having any access, nonfunctioning of port due to thrombosis, infection of port, etc. the patient understands and agrees to proceed. I have answered all the patient's questions to the patient?s satisfaction and the patient has no further questions. Ana Jung M.D. Pager: [phone] [facility] [address] [place] [address], [address] [place] [address] Office: [phone] Plan Detail Follow Up We will schedule right possible left Port-A-Cath Coding Level of Care Code Off vis,new,level 3 Diagnoses Encounter for adjustment or management of vascular access device Z45.2 Neuroendocrine carcinoma of lung C7A.8 Liver metastases C78.7
[2018-06-15 13:50] VITALS: BMI 34.7
[2018-06-19 10:53] VITALS: BP 128/55; PULSE 75; RESP 18; TEMP 36.3; O2SAT 95; BMI 33.6
[2018-06-19 11:20] LABS: Bedside Glucose 136 mg/dL (70-110)
[2018-06-19] MEDS: Cefazolin 2 GM in 0.9% Normal Saline 100 ML IV (11:35)
[2018-06-19] MEDS: Bupivacaine Mpf 0.5% 30 ML VIAL (11:50)
--- NOTE | 2018-06-19 13:06 | PCM.OPRPT ---
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 Right IJ Port-A-Cath. 2. Use of fluoroscopy. 3. Use of ultrasound Anesthesiologist: Eron Vasquez Special Medications: Ancef 2 g IV x1 Specimen's removed: None Estimated Blood Loss (mL): 10 cc Fluids Replaced: 800 cc Description of Procedure: After informed consent was given, the patient was brought to the operating room and placed in the supine position. Appropriate time out protocol was followed. He was then given IV conscious sedation for anesthesia. The patient's bilateral upper chest and neck were then prepped with a surgical skin preparation and sterile surgical drapes were placed. After proper landmarks were ascertained, the skin at the upper right chest area was then infiltrated with 1:1 mixture of 1% lidocaine with epinephrine and 0.5% maricaine. A needle trocar was then inserted into the right internal jugular vein with ultrasound guidance-multiple vessels were viewed with u/s and the right IJ was chosen-- and there was good aspiration of venous blood. A wire was then threaded into the needle trocar and this was visualized under fluoroscopy to ensure that the wire was in the superior vena cava. Once this was done, then the needle trocar was removed. A small skin ridge was made with an 11 blade knife at the wire entrance site. The dilator with the introducer sheath attached was then placed over the wire into the right internal jugular vein via the Seldinger technique and this was visualized under fluoroscopy. The dilator and sheath were in proper position as visualized by fluoroscopy. A subcutaneous pocket was then created caudad to the catheter insertion site. A transverse skin incision was made after the skin and subcutaneous tissues were infiltrated with local anesthetic. Blunt dissection was then used to create a space large enough for placement of the subcutaneous port. The catheter was then tunneled into the subcutaneous pocket. The wire and dilator were then removed. The catheter was then threaded into the introducer sheath and was positioned with its tip at the junction of the superior vena cava and the right atrium as visualized under fluoroscopy. The excess catheter was transected. The catheter was then attached to the subcutaneous port using manufacturers guidelines. The catheter was flushed with a heparin saline mixture prior to placement. Hemostasis was carefully controlled with electrocautery. The port was sutured to the subcutaneous fascia using 3-0 PDS suture at two sites. The port was then placed in the subcutaneous pocket and the sutures were ligated. The incision were reapproximated with interrupted subdermal 3-0 vicryl sutures. The skin was reapproximated with 3-0 nylon suture in a interrupted fashion. Steristrips were used for reinforcement of the skin closure at IJ insertion site and a sterile opsite dressings were applied. The patient tolerated the procedure well. Implants Used: [employer] PowerPort isp M.[employer]. 6Fr Lot [id number] Grafts/Implants Used: [employer]Port isp M.R.[employer]. 6Fr Lot [id number] - Complications none
--- NOTE | 2018-06-19 13:10 | PCM.DC.POR ---
Discharge Diet: No Restrictions May shower in (days): 1 - Acute port site dry for 5 days okay to do lower showers and sponge bath the top or taper off with a Ziploc bag Lifting Restrictions: No lifting greater than 15 pounds x 1 week on the right Call your doctor if your incision/area has: Continuous Slow Oozing, Sudden Increased Bleeding, Increased Pain/ Swelling, Increased Redness, Foul Smelling Discharge, Swelling at the incision site Call your doctor if you observe: Fever of 101 or Higher Remove Dressing in (days):: 3 - Okay to use for chemotherapy during this time Allergies/Adverse Reactions: Allergies Anvplar-Hoi-Iyw Reductase Inhibitor Allergy (Severe, Verified 06/19/18 10:49) intollerance, myalgias Medications to take at Discharge aspirin 325 mg tablet 325 mg PO QDAY 02/17/17 insulin lispro protamine-lispro 100 unit/mL (75-25) subcutaneous susp 10 unit SC DIRECTED ml 02/17/17 nitroglycerin 0.4 mg sublingual tablet 0.4 mg SUBLINGUAL Q5M PRN 02/17/17 metformin ER 1,000 mg 24 hr tablet,extended release 2,000 mg PO BID tab 03/25/17 clopidogrel 75 mg tablet 75 mg PO QDAY #90 tab 03/13/18 hydrochlorothiazide 25 mg tablet 25 mg PO QDAY #90 tab 03/13/18 metoprolol tartrate 50 mg tablet 50 mg PO BID #180 tab 03/13/18 pravastatin 20 mg tablet 20 mg PO QHS #90 tab 03/13/18 amlodipine 2.5 mg tablet 2.5 mg PO QDAY #90 tab 05/10/18 Metoclopramide [Reglan] 10 mg PO 4X/DAY PRN 15 Days #60 tab 06/08/18 Ondansetron [Zofran] 8 mg PO Q8H PRN PRN #30 tab 06/08/18 Oxycodone HCl/Acetaminophen [Percocet 5/325] 1 - 2 tablet PO Q6H PRN PRN 3 Days #5 tablet 06/19/18 The following prescriptions were given: Oxycodone HCl/Acetaminophen [Percocet 5/325] 1 - 2 tablet PO Q6H PRN PRN 3 Days #5 tablet PRN Reason: Pain Primary Care Physician: Contreras Grider MD [Primary Care Provider] - Test Results: Test results from this visit will be discussed in further detail at your follow-up appointment, if applicable. Please Follow Up With: Ana Jung MD - After 5:00 on the weekends call [phone] When: Call the office for a follow-up appointment in 10 days for suture removal Proposed Discharge Date: 06/19/18
--- NOTE | 2018-06-19 13:13 | DCINST_ITS ---
Discharge Diet: No Restrictions May shower in (days): 1 - Acute port site dry for 5 days okay to do lower showers and sponge bath the top or taper off with a Ziploc bag Lifting Restrictions: No lifting greater than 15 pounds x 1 week on the right Call your doctor if your incision/area has: Continuous Slow Oozing, Sudden Increased Bleeding, Increased Pain/ Swelling, Increased Redness, Foul Smelling Discharge, Swelling at the incision site Call your doctor if you observe: Fever of 101 or Higher Remove Dressing in (days):: 3 - Okay to use for chemotherapy during this time Allergies/Adverse Reactions: Allergies Capvyfm-Ayw-Qfm Reductase Inhibitor Allergy (Severe, Verified 06/19/18 10:49) intollerance, myalgias Medications to take at Discharge aspirin 325 mg tablet 325 mg PO QDAY 02/17/17 insulin lispro protamine-lispro 100 unit/mL (75-25) subcutaneous susp 10 unit SC DIRECTED ml 02/17/17 nitroglycerin 0.4 mg sublingual tablet 0.4 mg SUBLINGUAL Q5M PRN 02/17/17 metformin ER 1,000 mg 24 hr tablet,extended release 2,000 mg PO BID tab 03/25/17 clopidogrel 75 mg tablet 75 mg PO QDAY #90 tab 03/13/18 hydrochlorothiazide 25 mg tablet 25 mg PO QDAY #90 tab 03/13/18 metoprolol tartrate 50 mg tablet 50 mg PO BID #180 tab 03/13/18 pravastatin 20 mg tablet 20 mg PO QHS #90 tab 03/13/18 amlodipine 2.5 mg tablet 2.5 mg PO QDAY #90 tab 05/10/18 Metoclopramide [Reglan] 10 mg PO 4X/DAY PRN 15 Days #60 tab 06/08/18 Ondansetron [Zofran] 8 mg PO Q8H PRN PRN #30 tab 06/08/18 Oxycodone HCl/Acetaminophen [Percocet 5/325] 1 - 2 tablet PO Q6H PRN PRN 3 Days #5 tablet 06/19/18 The following prescriptions were given: Oxycodone HCl/Acetaminophen [Percocet 5/325] 1 - 2 tablet PO Q6H PRN PRN 3 Days #5 tablet PRN Reason: Pain Primary Care Physician: Contreras Grider MD [Primary Care Provider] - Test Results: Test results from this visit will be discussed in further detail at your follow- up appointment, if applicable. Please Follow Up With: Ana Jnug MD - After 5:00 on the weekends call [phone] When: Call the office for a follow-up appointment in 10 days for suture removal Proposed Discharge Date: 06/19/18
[2018-06-19 13:15] VITALS: BP 128/55; BP 143/54; PULSE 82; RESP 16; TEMP 36.6; O2SAT 93
--- NOTE | 2018-06-19 13:18 | RAD_ITS ---
STUDY: X-RAY CHEST REASON FOR EXAM: Male, 77 years old. Port placement. TECHNIQUE: Single AP portable view of the chest. COMPARISON: Comparison is made with prior study dated October 01, 2018. FINDINGS: A right-sided shannon catheter has been placed. The tip is at the junction of the superior vena cava and right atrium. Persistent right upper lobe ill-defined density with prominence of the left hilum. Persistent blunting of the left Lisfranc angle with underlying left basilar infiltration and/or atelectasis. There is mild cardiac enlargement. Normal visualized pulmonary arteries. There is atherosclerotic calcification of the aortic arch with tortuosity. Normal visualized thoracic spine. Normal visualized ribs, clavicles, and shoulders. There is no demonstrated abnormality of the visualized soft tissue structures of the upper abdomen. RAD/CXR for Line Placement IMPRESSION: The tip of the shannon catheter is at the junction of the superior vena cava and right atrium. Persistent left upper lobe density with increased markings at the left lung base and small left pleural effusion. Prominence of the left hilum. Electronically Signed: Hitesh De La Garza, at 13:48 EDT , Service support ,
[2018-06-19 13:20] VITALS: BP 128/55; BP 131/48; PULSE 80; RESP 16; O2SAT 95
[2018-06-19 13:25] VITALS: BP 100/58; BP 128/55; PULSE 71; RESP 16; O2SAT 93
[2018-06-19 13:39] VITALS: BP 125/49; BP 128/55; PULSE 62; RESP 16; TEMP 36.2; O2SAT 93
[2018-06-19 14:19] VITALS: BP 128/55
== END 2018-06-19 14:28 | disposition home or self-care (01) ==
LOC: SDC 10:31 → AC 10:31
PROVIDERS: Family Provider Family Medicine; PCP Family Medicine; Referring Provider Surgery; Visit Provider Surgery
PROC: (CPT 36561; principal; 2018-06-19 11:40)
DX: Z45.2 Encounter for adjustment and management of vascular access device (principal); C7A.8 Other malignant neuroendocrine tumors; C78.7 Secondary malignant neoplasm of liver and intrahepatic bile duct; E11.9 Type 2 diabetes mellitus without complications; I73.9 Peripheral vascular disease, unspecified; I10 Essential (primary) hypertension; E78.5 Hyperlipidemia, unspecified; I25.2 Old myocardial infarction; I25.10 Atherosclerotic heart disease of native coronary artery without angina pectoris; I25.5 Ischemic cardiomyopathy; I47.1 Supraventricular tachycardia; I47.2 Ventricular tachycardia; N40.0 Benign prostatic hyperplasia without lower urinary tract symptoms; F17.290 Nicotine dependence, other tobacco product, uncomplicated; Z95.5 Presence of coronary angioplasty implant and graft; Z79.4 Long term (current) use of insulin; Z79.84 Long term (current) use of oral hypoglycemic drugs; Z79.82 Long term (current) use of aspirin; Z79.899 Other long term (current) drug therapy
CPT/HCPCS: 36561; 71045; 77001; 82962; J7120

== ENCOUNTER → 2018-07-07 09:37 | Outpatient (CLI) | payer MEDICARE, OTHER, SELFPAY ==
[2018-07-04 09:12] VITALS: BMI 33.3
[2018-07-07 10:40] LABS: Anion Gap 9 (5-15); BUN 13 mg/dL (7-18); Calcium,Total 8.7 mg/dL (8.5-10.1); Chloride 96 mmol/L (98-107); Creatinine, Serum 0.87 mg/dL (0.70-1.30); EST Glomerular Filtration Rate 90 mL/min (>60); Est Glom Filt Rate - Afr Amer 109 mL/min (>60); Glucose 115 mg/dL (74-106); Potassium 3.8 mmol/L (3.5-5.1); Sodium Level 135 mmol/L (136-145)
== END ==
PROVIDERS: Family Provider Family Medicine; PCP Family Medicine; Referring Provider Family Medicine; Visit Provider Nurse Practitioner Family
DX: E87.8 Other disorders of electrolyte and fluid balance, not elsewhere classified (principal)
CPT/HCPCS: 36415; 80048

== ENCOUNTER 2018-07-10 12:55 | Outpatient (RCR) | payer MEDICARE, OTHER, SELFPAY ==
[2018-07-04 09:12] VITALS: BMI 33.3
[2018-07-10 13:17] VITALS: BP 123/67; PULSE 91; RESP 20; TEMP 37.2; BMI 31.9
--- NOTE | 2018-07-10 14:35 | HP.PCM_ITS ---
(1) Peripheral arterial occlusive disease Status: Chronic Current Visit: Yes Code(s): I77.9 - Disorder of arteries and arterioles, unspecified (2) CHF (congestive heart failure) Status: Chronic Current Visit: No Code(s): I50.9 - Heart failure, unspecified (3) Open wound of left lower extremity Status: Chronic Current Visit: Yes Qualifiers: Encounter type: initial encounter Code(s): S81.802A - Unspecified open wound, left lower leg, initial encounter (4) Hx of heart artery stent Status: Chronic Current Visit: No Code(s): Z95.5 - Presence of coronary angioplasty implant and graft (5) Hx of cardiac catheterization Status: Chronic Current Visit: No Code(s): Z98.890 - Other specified postprocedural states (6) PVD (peripheral vascular disease) Status: Chronic Current Visit: Yes Code(s): I73.9 - Peripheral vascular disease, unspecified (7) Neuroendocrine carcinoma of lung Status: Chronic Current Visit: No Code(s): C7A.8 - Other malignant neuroendocrine tumors (8) Liver metastases Status: Chronic Current Visit: No Code(s): C78.7 - Secondary malignant neoplasm of liver and intrahepatic bile duct (9) Regional lymph node metastasis present Status: Chronic Current Visit: No Code(s): C77.9 - Secondary and unspecified malignant neoplasm of lymph node, unspecified (10) H/O: hemorrhoidectomy Status: Chronic Current Visit: No Code(s): Z98.890 - Other specified postprocedural states (11) Hx of inguinal hernia surgery Status: Chronic Current Visit: No Code(s): Z98.890 - Other specified postprocedural states; Z87.19 - Personal history of other diseases of the digestive system Comment: Right inguinal (12) History of ankle surgery Status: Chronic Current Visit: No Code(s): Z98.890 - Other specified postprocedural states Comment: RIGHT (13) H/O transurethral resection of prostate Status: Chronic Current Visit: No Code(s): Z98.890 - Other specified p ostprocedural states; Z90.79 - Acquired absence of other genital organ(s) (14) Diabetes Status: Chronic Current Visit: Yes Qualifiers: Diabetes mellitus type: type 2 Code(s): E11.9 - Type 2 diabetes mellitus without complications (15) HLD (hyperlipidemia) Status: Chronic Current Visit: No Qualifiers: Code(s): E78.5 - Hyperlipidemia, unspecified (16) HTN (hypertension) Status: Chronic Current Visit: No Qualifiers: Code(s): I10 - Essential (primary) hypertension (17) Atherosclerotic heart disease of [place] coronary artery without angina pectoris Status: Chronic Current Visit: No Qualifiers: [place] vs. transplanted heart: [place] heart Code(s): I25.10 - Atherosclerotic heart disease of [place] coronary artery without angina pectoris (18) Ischemic cardiomyopathy Status: Chronic Current Visit: No Code(s): I25.5 - Ischemic cardiomyopathy (19) S/P PTCA (percutaneous transluminal coronary angioplasty) Status: Chronic Current Visit: No Code(s): Z98.61 - Coronary angioplasty status Comment: bare metal stent to RCA, intracoronary stent for thrombus formation at [facility]. (20) Ulcer of leg, chronic, left Status: Chronic Current Visit: Yes Qualifiers: Non-pressure ulcer stage: with fat layer exposed Qualified Code(s): L97.922 - Non-pressure chronic ulcer of unspecified part of left lower leg with fat layer exposed Code(s): L97.929 - Non-pressure chronic ulcer of unspecified part of left lower leg with unspecified severity History of Present Illness Date of Service: 07/10/18 Chief Complaint: Chronic ulcerations of the distal left lower extremity History of Wound: This is a 77-year-old male who presents to the [facility] accompanied by his daughter. He has ulcerations of the distal left lower extremity, said to be present for over a year. It appears as though it occurred spontaneously, rather than due to trauma or other obvious causes. Most recently, he has been applying A & D ointment topically. Cellulitis was recently diagnosed, and the patient has recently completed a course of oral Augmentin, which has decreased and essentially resolved the associated erythema and cellulitis. Patient has a known history of peripheral arterial occlusive disease, and has been under the care of a vascular surgeon in [place], [place]. His most recent noninvasive lower extremity arterial study was performed in March 2016, which revealed an ankle-brachial index of 0.33 on the right and 0.82 on the left. The right digital?brachial index was 0.12, and the left digital-brachial index was 0.48. Monophasic waveforms were noted at right ankle level, and triphasic waveforms were noted at left ankle level. When seen and evaluated by the vascular surgeon in 2017, no specific intervention was recommended. The patient's mobility is somewhat limited, and he does not ambulate liberally. He ambulates using a walker. He claims to sleep on a flat mattress at night, though sits for long hours ideally each day. He denies significant swelling in his lower extremities. He also denies a history of thrombophlebitis. Several months ago, the patient was diagnosed with lung cancer, and has recently initiated chemotherapy. A Port-A-Cath was inserted on June 19, 2018, for chemotherapy purposes. Past Medical History Past Medical History: Chronic Problems (Last Reviewed 07/04/18 @ 09:11 by Maribeth Montaño) Open wound of left lower extremity (Chronic) Peripheral arterial occlusive disease (Chronic) CHF (congestive heart failure) (Chronic) Ulcer of leg, chronic, left (Chronic) Hx of heart artery stent (Chronic) Hx of cardiac catheterization (Chronic) PVD (peripheral vascular disease) (Chronic) Neuroendocrine carcinoma of lung (Chronic) Liver metastases (Chronic) Regional lymph node metastasis present (Chronic) H/O: hemorrhoidectomy (Chronic) Hx of inguinal hernia surgery (Chronic) Right inguinal History of ankle surgery (Chronic) RIGHT H/O transurethral resection of prostate (Chronic) Diabetes (Chronic) HLD (hyperlipidemia) (Chronic) HTN (hypertension) (Chronic) Subsequent ST elevation (STEMI) myocardial infarction of inferior wall (Chronic) Atherosclerotic heart disease of [place] coronary artery without angina pectoris (Chronic) Ischemic cardiomyopathy (Chronic) Paroxysmal supraventricular tachycardia (Chronic) Paroxysmal ventricular tachycardia (Chronic) S/P PTCA (percutaneous transluminal coronary angioplasty) (Chronic 05/23/07) bare metal stent to RCA, intracoronary stent for thrombus formation at [facility]. High risk medication use (Chronic) Edema (Chronic) Past Medical History: Patient's history is positive for myocardial infarction. The patient states he has had myocardial infarctions approximately 6 times in the past. 2 cardiac stents have been previously placed. He has a history of congestive heart failure, diabetes mellitus, hypertension, and hyperlipidemia. His history is negative for cerebrovascular accident, renal disease, and thyroid disease. Surgical History: - - Patient has had 2 cardiac stents placed previously. The Port-A-Cath was placed on June 19, 2018. Patient has had a hemorrhoid surgery, right inguinal hernia repair, transurethral resection of the prostate, and ORIF of a right ankle fracture in the past. Allergies/Adverse Reactions: Allergies Ngdpzed-Vlo-Jri Reductase Inhibitor Allergy (Severe, Verified 07/10/18 13:37) intollerance, myalgias Home Medications: Ambulatory Orders Medication Instructions Recorded aspirin 325 mg tablet 325 mg PO QDAY 02/17/17 insulin lispro protamine-lispro 10 unit SC DIRECTED ml 02/17/17 100 unit/mL (75-25) subcutaneous susp nitroglycerin 0.4 mg sublingual 0.4 mg SUBLINGUAL Q5M PRN 02/17/17 tablet metformin ER 1,000 mg 24 hr 2,000 mg PO BID tab 03/25/17 tablet,extended release clopidogrel 75 mg tablet 75 mg PO QDAY #90 tab 03/13/18 metoprolol tartrate 50 mg tablet 50 mg PO BID #180 tab 03/13/18 pravastatin 20 mg tablet 20 mg PO QHS #90 tab 03/13/18 amlodipine 2.5 mg tablet 2.5 mg PO QDAY #90 tab 05/10/18 Metoclopramide [Reglan] 10 mg PO 4X/DAY PRN 15 Days #60 tab 06/08/18 Prochlorperazine Maleate 10 mg PO Q6H PRN PRN 10 Days #40 06/20/18 [Compazine] tab Ondansetron [Zofran] 8 mg PO Q8H PRN PRN 10 Days #30 tab 07/04/18 Potassium Chloride [K-Dur] 20 meq PO DAILY 30 Days #30 tablet 07/04/18 Lorazepam [Ativan] 0.5 mg PO DAILY PRN PRN 07/10/18 Metformin HCl [Metformin ER 1,000 mg PO 07/10/18 Osmotic] Metoprolol Tartrate 50 mg PO 07/10/18 Ondansetron HCl [Zofran] 10 mg PO 07/10/18 - Family History Paternal Family History: Family History (Last Reviewed 07/04/18 @ 14:39 by Maribeth Montaño) Father Cancer Prostate cancer Mother Heart disease Breast cancer Brother Leukemia FH: CABG (coronary artery bypass surgery) Prostate cancer Sister Breast cancer Social History: 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 He smokes a pipe. He denies the use of alcohol. He is . He lives with his . Lives: Spouse/ Significant Other Smoking Status: Current every day smoker - Pipe Tobacco Use: Pipe Alcohol: None Drugs: None Review of Systems Constitutional: Denies: Chills, Fever, Weight Change Eyes: Denies: Pain, Vision Change HEENT: Denies: Difficulty Hearing, Difficulty Swallowing, Sinus Congestion Cardiovascular: Denies: Chest Pain, Palpitations Respiratory: Denies: Cough, Shortness of Breath Gastrointestinal: Denies: Diarrhea, Nausea, Vomiting Genitourinary: Denies: Dysuria, Hematuria Endocrine: Denies: Heat/ Cold Intolerance, Polydipsia, Polyuria Hematologic/ Lymphatic: Denies: Easy Bruising, Easy Bleeding - Physical Exam Vital Signs Temp Pulse Resp BP 98.9 F 91 20 H 123/67 H 07/10/18 13:17 07/10/18 13:17 07/10/18 13:17 07/10/18 13:17 General: Alert, Oriented x3, Cooperative, No apparent distress, Well developed, Well nourished, - - Patient is obese HEENT: Atraumatic, PERRLA, EOMI, Normocephalic Oral: Moist Mucosa Neck: Supple, No JVD, Negative Carotid Bruits, Negative Hepatojugular Reflux, No Nodes, No Nuchal Rigidity, Trachea Midline Lungs: Clear to auscultation, Normal air movement, No rhonchi, No wheeze, No rales Cardiovascular: Regular rate, Regular Rhythm, Normal S1, Normal S2, No murmurs Abdomen: Soft, Non Tender, Non-Distended, Obese Extremities: No clubbing, No cyanosis, No edema, No Calf Tenderness, - - There is no significant swelling or edema in the patient's lower extremities. There is an ulceration on the left anterior tibial surface and on the left posterior calf. These are fairly superficial in depth. Dimensions are documented elsewhere. There is no sign of infection or cellulitis. There is a moderate amount of bioburden. The base of the ulcerations are generally pink and healthy in appearance. Skin: No rashes Wound Measurements and Assessment WC - Nurse 1 - General Ulcer Measurement Start: 07/10/18 13:17 Freq: Status: Active Protocol: Activity Type Activity Date Activity User E-Sign Co-Sign Detail Recorded Client Recorded Date Recorded By Document 07/10/18 13:17 MW [id number] 07/10/18 13:38 MW 07/10/18 13:17 Wound Center Nurse 1 [Ulcer Assessment] #2 POSTERIOR LLE -Combined with other wound No -Current Size (cm) - Length 1.5 -Current Size (cm) - Width 1.0 -Current Size (cm) - Depth 0.1 -Total Square Cm 1.50 -Date of Last Picture (Recall this 07/10/18 field) -Photo Taken Yes -Epithelialization None Present -Tunneling No -Undermining/Tunneling No -Circular Undermining No -Exudate Amt None Present -Wound Margin Flat & Intact -Granulation Amt None Present (0 %) -Granulation Quality N/A -Slough/Fibrin Yes -Necrosis Amt Large (67-100%) -Necrotic Tissue Type Adherent Slough -Structure Exposed N/A -Texture (Keke-wound Skin Appearance) Assessed Localized Edema -Moisture (Keke-wound Skin Appearance Assessed ) Dry/Scaly -Color (Ke[place]-wound Skin Appearance) Assessed Hemosiderin Staining -Temperature (Keke-wound Skin No Abnormality Appearance) (Pt Warm) -Tenderness on Palpation (Keke-wound No Skin Appearance) -Ulcer Cleansing soap and water -Foul Odor after Cleansing No -Anesthetic Used 4% Lidocaine Solution #1 LEFT MOREJON -Combined with other wound No -Current Size (cm) - Length 3.0 -Current Size (cm) - Width 1.0 -Current Size (cm) - Depth 0.1 -Total Square Cm 3.00 -Date of Last Picture (Recall this 07/10/18 field) -Photo Taken Yes -Epithelialization None Present -Tunneling No -Undermining/Tunneling No -Circular Undermining No -Exudate Amt None Present -Wound Margin Flat & Intact -Granulation Amt None Present (0 %) -Granulation Quality N/A -Slough/Fibrin Yes -Necrosis Amt Large (67-100%) -Necrotic Tissue Type Adherent Slough -Structure Exposed N/A -Texture (Ke[place]-wound Skin Appearance) Assessed Localized Edema -Moisture (Keke-wound Skin Appearance Assessed ) Dry/Scaly -Color (Keke-wound Skin Appearance) Assessed Hemosiderin Staining -Temperature (Ke[place]-wound Skin No Abnormality Appearance) (Pt Warm) -Tenderness on Palpation (Keke-wound Yes Skin Appearance) -Ulcer Cleansing soap and water -Foul Odor after Cleansing No -Anesthetic Used 4% Lidocaine Solution [Edema Assessment] -Lower Limb Edema Present Yes -Right Calf (cm) 35.3 -Right Ankle (cm) 22.0 -Left Calf (cm) 36.5 -Left Ankle (cm) 21.2 WC - Nurse 2 - General Ulcer CM Notes Start: 07/10/18 13:17 Freq: Status: Active Protocol: Activity Type Activity Date Activity User E-Sign Co-Sign Detail Recorded Client Recorded Date Recorded By Document 07/10/18 14:05 DV [id number] 07/10/18 14:23 DV 07/10/18 14:05 Wound Center Nurse 2 [Procedure/Treatment] #2 POSTERIOR LLE -Time 14:15 -Correct Patient Yes -Correct Side, Site, Position Yes -Correct Procedure Yes -Procedure Performed Yes -Type of Procedure Debridement -Clinical Debridement Subcutaneous -Post Debridement Size (cm) - Length 1.6 -Post Debridement Size (cm) - Width 1.5 -Post Debridement Size (cm) - Depth 0.1 -Total Square Cm 2.40 -Wound/Ulcer Outcome Not Healed -Ulcer Cleansing Rinsed/ Irrigated with Saline -Foul Odor after Cleansing No -Bioengineered Tissue No -Bleeding Controlled with Pressure -Offloading No -Treatment Response Procedure Tolerated Well #1 LEFT MOREJON -Time 14:15 -Correct Patient Yes -Correct Side, Site, Position Yes -Correct Procedure Yes -Procedure Performed Yes -Type of Procedure Debridement -Clinical Debridement Subcutaneous -Post Debridement Size (cm) - Length 3.1 -Post Debridement Size (cm) - Width 1.2 -Post Debridement Size (cm) - Depth 0.1 -Total Square Cm 3.72 -Wound/Ulcer Outcome Not Healed -Ulcer Cleansing Rinsed/ Irrigated with Saline -Foul Odor after Cleansing No -Bioengineered Tissue No -Bleeding Controlled with Pressure -Offloading No -Treatment Response Procedure Tolerated Well [See Physician Procedure note for Specifics] Pain Scale: 0-10 Numeric [Pain] -Is Patient Pain Free? Yes Musculoskeletal: Muscle Wasting - Lower extremities Neurological: Cranial nerves II-XII grossly intact, Neuro grossly intact Psych/Mental Status: Normal Affect, Appropriate, Alert and oriented to time, place, person, mood and affect Debridement Note Post-Debridement Measurements/Treatment WC - Nurse 2 - General Ulcer CM Notes Start: 07/10/18 13:17 Freq: Status: Active Protocol: Activity Type Activity Date Activity User E-Sign Co-Sign Detail Recorded Client Recorded Date Recorded By Document 07/10/18 14:05 DV [id number] 07/10/18 14:23 DV 07/10/18 14:05 Wound Center Nurse 2 #2 POSTERIOR LLE -Time 14:15 -Correct Patient Yes -Correct Side, Site, Position Yes -Correct Procedure Yes -Procedure Performed Yes -Type of Procedure Debridement -Clinical Debridement Subcutaneous -Post Debridement Size (cm) - Length 1.6 -Post Debridement Size (cm) - Width 1.5 -Post Debridement Size (cm) - Depth 0.1 -Total Square Cm 2.40 -Wound/Ulcer Outcome Not Healed -Ulcer Cleansing Rinsed/ Irrigated with Saline -Foul Odor after Cleansing No -Bioengineered Tissue No -Bleeding Controlled with Pressure -Offloading No -Treatment Response Procedure Tolerated Well #1 LEFT MOREJON -Time 14:15 -Correct Patient Yes -Correct Side, Site, Position Yes -Correct Procedure Yes -Procedure Performed Yes -Type of Procedure Debridement -Clinical Debridement Subcutaneous -Post Debridement Size (cm) - Length 3.1 -Post Debridement Size (cm) - Width 1.2 -Post Debridement Size (cm) - Depth 0.1 -Total Square Cm 3.72 -Wound/Ulcer Outcome Not Healed -Ulcer Cleansing Rinsed/ Irrigated with Saline -Foul Odor after Cleansing No -Bioengineered Tissue No -Bleeding Controlled with Pressure -Offloading No -Treatment Response Procedure Tolerated Well Pain Scale: 0-10 Numeric Is Patient Pain Free? Yes Laterality: Left - Calf Type of Debridement: Excisional debridement Anesthesia Used: 5% Lidocaine Gel Depth: Down to and including healthy tissue, in the subcutaneous layer Percentage of wound debrided: 100 Instrument Used: 5mm curette Severity: Fat Layer Exposed Amount of bleeding with debridement: Mild Bleeding Controlled with: Compression and gauze Patient tolerated procedure well Assessment/Plan Active Problems (Last Reviewed 07/04/18 @ 09:11 by Maribeth Montaño) Open wound of left lower extremity (Chronic) Peripheral arterial occlusive disease (Chronic) Ulcer of leg, chronic, left (Chronic) PVD (peripheral vascular disease) (Chronic) Diabetes (Chronic) Assessment: This is a 77-year-old male with multiple pre-existing medical problems. These are detailed above. Most notable, the patient has peripheral arterial occlusive disease in his lower extremities, previously diagnosed, for which she is under the ongoing care of a vascular surgeon in [place], [place]. His most recent arterial study reveals severe arterial occlusive disease in the right lower extremity, and moderate to severe arterial occlusive disease in the left lower extremity. Patient is also recently been diagnosed with lung cancer, which is metastatic to liver and elsewhere. He presents with a history of ulcerations on the left calf, which have been present for more than 1 year. They appear to have occurred spontaneously, likely the result of blistering, which may have occurred due to dependency and swelling. Patient has recently undergone laboratory studies, and is scheduled for a repeat of his laboratory studies tomorrow. Results which are currently available are as follows: White blood count 19,100, hemoglobin 13.4, hematocrit 39.3, platelets 78,000, sodium 135, potassium 3.8, chloride 96, BUN 13, creatinine 0.87, glucose 115, calcium 8.7, total bilirubin 0.30, AST 17, ALT 26, alkaline phosphatase 110, total protein 6.8, albumin 3.3, PT 13.4, INR 1.0, PTT 35.6. Plan: Patient is scheduled to undergo laboratory studies tomorrow, as prearranged by his other providers. These results will be awaited. Patient and his daughter have been advised to elevate his lower extremities as much as possible. Elevation is to be implemented during daytime hours. His legs are to be elevated to heart level, or higher, as much as possible. He is to continue sleeping on a flat mattress at night. Prolonged idle sitting has been discouraged. Activity and ambulation has been encouraged. Weight loss has been recommended. Adequate nutrition has also been recommended. We are to implement the use of [place], which will be applied topically every other day. The patient and his daughter are to be instructed in the appropriate means of application. We are to use mild compression using Tubigrip's. Patient is to return in 1 week for reassessment. Despite the patient's known peripheral arterial occlusive disease, we are to forego vascular surgery consultation, and will monitor the patient's status over the next few weeks. Given his known metastatic lung cancer, aggressive intervention in terms of lower extremity revascularization may not be advisable as an early treatment modality. Conservative measures will be implemented initially, and results monitored. Influenza vaccine was not administered today. Patient smokes a pipe, and has been advised to discontinue this practice. Patient stands 5 feet 8 inches tall. He weighs 210 pounds. His BMI is 31.9, which places him in a class I obesity category. Weight loss has been recommended, and collaboration with his primary care physician has been advised.
== END 2018-07-11 23:59 ==
LOC: WC 12:55
PROVIDERS: Family Provider Family Medicine; PCP Family Medicine; Visit Provider Surgery
DX: E11.621 Type 2 diabetes mellitus with foot ulcer (principal); E11.51 Type 2 diabetes mellitus with diabetic peripheral angiopathy without gangrene; L97.822 Non-pressure chronic ulcer of other part of left lower leg with fat layer exposed; I25.10 Atherosclerotic heart disease of native coronary artery without angina pectoris; Z95.5 Presence of coronary angioplasty implant and graft; I50.9 Heart failure, unspecified; E78.5 Hyperlipidemia, unspecified; C7A.090 Malignant carcinoid tumor of the bronchus and lung; R77.9 Abnormality of plasma protein, unspecified; C78.7 Secondary malignant neoplasm of liver and intrahepatic bile duct; I11.0 Hypertensive heart disease with heart failure; I25.2 Old myocardial infarction; Z79.899 Other long term (current) drug therapy; Z79.4 Long term (current) use of insulin; Z79.82 Long term (current) use of aspirin; Z68.31 Body mass index [BMI] 31.0-31.9, adult; E66.9 Obesity, unspecified
CPT/HCPCS: 11042; 99213; G0463

== ENCOUNTER 2018-08-10 13:30 | Outpatient (RCR) | payer MEDICARE, OTHER, SELFPAY ==
[2018-07-12 01:59] VITALS: BP 123/67; PULSE 91; RESP 20; TEMP 37.2; BMI 31.9
[2018-07-20 10:46] VITALS: BMI 31.4
[2018-07-20 13:30] VITALS: BP 111/60; PULSE 82; RESP 18; TEMP 37.1; BMI 31.4
--- NOTE | 2018-07-25 15:44 | PN.PCM_ITS ---
(1) Ulcer of leg, chronic, left Status: Chronic Qualifiers: Code(s): L97.929 - Non-pressure chronic ulcer of unspecified part of left lower leg with unspecified severity (2) Open wound of left lower extremity Status: Chronic Qualifiers: Code(s): S81.802A - Unspecified open wound, left lower leg, initial encounter (3) Neuroendocrine carcinoma of lung Status: Acute Code(s): C7A.8 - Other malignant neuroendocrine tumors (4) Regional lymph node metastasis present Status: Acute Code(s): C77.9 - Secondary and unspecified malignant neoplasm of lymph node, unspecified (5) Atherosclerotic heart disease of [place] coronary artery without angina pectoris Status: Chronic Qualifiers: Code(s): I25.10 - Atherosclerotic heart disease of [place] coronary artery without angina pectoris (6) CHF (congestive heart failure) Status: Chronic Code(s): I50.9 - Heart failure, unspecified (7) Diabetes Status: Chronic Code(s): E11.9 - Type 2 diabetes mellitus without complications (8) Edema Status: Chronic Code(s): R60.9 - Edema, unspecified (9) Ischemic cardiomyopathy Status: Chronic Code(s): I25.5 - Ischemic cardiomyopathy (10) PVD (peripheral vascular disease) Status: Chronic Code(s): I73.9 - Peripheral vascular disease, unspecified (11) Paroxysmal ventricular tachycardia Status: Chronic Code(s): I47.2 - Ventricular tachycardia (12) Peripheral arterial occlusive disease Status: Chronic Code(s): I77.9 - Disorder of arteries and arterioles, unspecified Type of Wound Date of Service: 07/20/18 Chief Complaint: Chronic ulcerations of the distal left lower extremity History of Wound: This is a 77-year-old male who presents to the [facility] accompanied by his daughter. He has ulcerations of the distal left lower extremity, said to be present for over a year. It appears as though it occurred spontaneously, rather than due to trauma or other obvious causes. Most recently, he has been applying A & D ointment topically. Cellulitis was recently diagnosed, and the patient has recently completed a course of oral Augmentin, which has decreased and essentially resolved the associated erythema and cellulitis. Patient has a known history of peripheral arterial occlusive disease, and has been under the care of a vascular surgeon in [place], [place]. His most recent noninvasive lower extremity arterial study was performed in March 2016, which revealed an ankle-brachial index of 0.33 on the right and 0.82 on the left. The right digital?brachial index was 0.12, and the left digital-brachial index was 0.48. Monophasic waveforms were noted at right ankle level, and triphasic waveforms were noted at left ankle level. When seen and evaluated by the vascular surgeon in 2017, no specific intervention was recommended. The patient's mobility is somewhat limited, and he does not ambulate liberally. He ambulates using a walker. He claims to sleep on a flat mattress at night, though sits for long hours ideally each day. He denies significant swelling in his lower extremities. He also denies a history of thrombophlebitis. Several months ago, the patient was diagnosed with lung cancer, and has recently initiated chemotherapy. A Port-A-Cath was inserted on June 19, 2018, for chemotherapy purposes. Progress of Wound: Transfer of care from Dr. Enrique to myself due to scheduling conflict. Patient seemed to have tolerated the Helena well and wound beds are moist and pink without any signs of infection at this time. - Physical Exam Vital Signs Temp Pulse Resp BP 98.7 F 82 18 111/60 07/20/18 13:30 07/20/18 13:30 07/20/18 13:30 07/20/18 13:30 General: Alert, Oriented x3, Cooperative, No apparent distress HEENT: PERRLA, EOMI Neck: Supple, No JVD, Negative Carotid Bruits Lungs: Clear to auscultation Cardiovascular: Regular rate, Regular Rhythm Abdomen: Soft, Non Tender, Obese Extremities: Capillary Refill Less than 3 Seconds, - - Generalized bilateral lower extremity edema, ulceration present on the left lower extremity anterior surface in the left posterior calf, slough present, no signs of obvious infection at this time. Musculoskeletal: No Muscle Wasting - BLLE Neurological: Neuro grossly intact Psych/Mental Status: Normal Affect, Appropriate, Alert and oriented to time, place, person, mood and affect Debridement Note Post-Debridement Measurements/Treatment WC - Nurse 2 - General Ulcer CM Notes Start: 07/20/18 13:30 Freq: Status: Active Protocol: Activity Type Activity Date Activity User E-Sign Co-Sign Detail Recorded Client Recorded Date Recorded By Document 07/20/18 14:01 AN [id number] 07/20/18 14:07 AN 07/20/18 14:01 Wound Center Nurse 2 #2 POSTERIOR LLE -Time 14:02 -Correct Patient Yes -Correct Side, Site, Position Yes -Correct Procedure Yes -Procedure Performed Yes -Type of Procedure Debridement -Clinical Debridement Subcutaneous -Post Debridement Size (cm) - Length 2 -Post Debridement Size (cm) - Width 3.4 -Post Debridement Size (cm) - Depth 0.1 -Total Square Cm 6.8 -Wound/Ulcer Outcome Amputation -Ulcer Cleansing Rinsed/ Irrigated with Saline -Foul Odor after Cleansing No -Bioengineered Tissue No -Bleeding Controlled with Pressure -Offloading No -Treatment Response Procedure Tolerated Well #1 LEFT MOREJON -Time 14:03 -Correct Patient Yes -Correct Side, Site, Position Yes -Correct Procedure Yes -Procedure Performed Yes -Type of Procedure Debridement -Clinical Debridement Subcutaneous -Post Debridement Size (cm) - Length 2.1 -Post Debridement Size (cm) - Width 1 -Post Debridement Size (cm) - Depth 0.1 -Total Square Cm 2.1 -Wound/Ulcer Outcome Not Healed -Ulcer Cleansing Rinsed/ Irrigated with Saline -Foul Odor after Cleansing No -Bioengineered Tissue No -Bleeding Controlled with Pressure -Offloading No -Treatment Response Procedure Tolerated Well Pain Scale: 0-10 Numeric Is Patient Pain Free? Yes Wound debrided: Left anterior lower extremity ulcer Laterality: Left Type of Debridement: Excisional debridement Anesthesia Used: 5% Lidocaine Gel Depth: in the subcutaneous layer Percentage of wound debrided: 100 Instrument Used: 5mm curette Tissue Removed: Slough and devitalized tissue Severity: Fat Layer Exposed Amount of bleeding with debridement: Mild Bleeding Controlled with: Pressure Patient tolerated procedure well - Additional Wound Wound debrided: Left posterior lower extremity ulcer Type of Debridement: Excisional debridement Anesthesia Used: 5% Lidocaine Gel Depth: in the subcutaneous layer Percentage of wound debrided: 100 Instrument Used: 5mm curette Tissue Removed: Slough and devitalized tissue Severity: Fat Layer Exposed Amount of bleeding with debridement: Mild Bleeding Controlled with: Pressure Patient tolerated procedure: Patient tolerated procedure well Assessment/Plan Assessment: This is a 77-year-old male with multiple pre-existing medical problems. These are detailed above. Most notable, the patient has peripheral arterial occlusive disease in his lower extremities, previously diagnosed, for which she is under the ongoing care of a vascular surgeon in [place], [place]. His most recent arterial study reveals severe arterial occlusive disease in the right lower extremity, and moderate to severe arterial occlusive disease in the left lower extremity. Patient is also recently been diagnosed with lung cancer, which is metastatic to liver and elsewhere. He presents with a history of ulcerations on the left calf, which have been present for more than 1 year. They appear to have occurred spontaneously, likely the result of blistering, which may have occurred due to dependency and swelling. Patient has recently undergone laboratory studies, and is scheduled for a repeat of his laboratory studies tomorrow. Results which are currently available are as follows: White blood count 19,100, hemoglobin 13.4, hematocrit 39.3, platelets 78,000, sodium 135, potassium 3.8, chloride 96, BUN 13, creatinine 0.87, glucose 115, calcium 8.7, total bilirubin 0.30, AST 17, ALT 26, alkaline phosphatase 110, total protein 6.8, albumin 3.3, PT 13.4, INR 1.0, PTT 35.6. Plan: Transfer care from Dr. Enrique. Patient and his daughter have been advised to elevate his lower extremities as much as possible. Elevation is to be impl emented during daytime hours. His legs are to be elevated to heart level, or higher, as much as possible. He is to continue sleeping on a flat mattress at night. Prolonged idle sitting has been discouraged. Activity and ambulation has been encouraged. Weight loss has been recommended. Adequate nutrition has also been recommended. We are to implement the use of Hel[place], which will be applied topically every other day. The patient and his daughter are to be instructed in the appropriate means of application. We are to use mild compression using Tubigrip's. Patient is to return in 1 week for reassessment. Despite the patient's known peripheral arterial occlusive disease, we are to forego vascular surgery consultation, and will monitor the patient's status over the next few weeks. Given his known metastatic lung cancer, aggressive intervention in terms of lower extremity revascularization may not be advisable as an early treatment modality. Conservative measures will be implemented initially, and results monitored. This note was generated with [employer] software. It may contain incorrect words, spelling, and punctuation that were not noted in checking the note before signing. Code Visit 111xxx-113xx: [id number] Leda subq tissue 20 sq cm/<
[2018-07-27 13:29] VITALS: BP 130/69; PULSE 86; RESP 16; TEMP 36; BMI 31.4
--- NOTE | 2018-07-27 17:35 | PCM.WC.PN ---
(1) Ulcer of leg, chronic, left Status: Chronic Current Visit: Yes Qualifiers: Code(s): L97.929 - Non-pressure chronic ulcer of unspecified part of left lower leg with unspecified severity (2) Open wound of left lower extremity Status: Chronic Current Visit: Yes Qualifiers: Code(s): S81.802A - Unspecified open wound, left lower leg, initial encounter (3) Neuroendocrine carcinoma of lung Status: Acute Current Visit: No Code(s): C7A.8 - Other malignant neuroendocrine tumors (4) Regional lymph node metastasis present Status: Acute Current Visit: No Code(s): C77.9 - Secondary and unspecified malignant neoplasm of lymph node, unspecified (5) Atherosclerotic heart disease of [place] coronary artery without angina pectoris Status: Chronic Current Visit: No Qualifiers: Code(s): I25.10 - Atherosclerotic heart disease of [place] coronary artery without angina pectoris (6) CHF (congestive heart failure) Status: Chronic Current Visit: No Code(s): I50.9 - Heart failure, unspecified (7) Diabetes Status: Chronic Current Visit: No Code(s): E11.9 - Type 2 diabetes mellitus without complications (8) Edema Status: Chronic Current Visit: No Code(s): R60.9 - Edema, unspecified (9) Ischemic cardiomyopathy Status: Chronic Current Visit: No Code(s): I25.5 - Ischemic cardiomyopathy (10) PVD (peripheral vascular disease) Status: Chronic Current Visit: No Code(s): I73.9 - Peripheral vascular disease, unspecified (11) Paroxysmal ventricular tachycardia Status: Chronic Current Visit: No Code(s): I47.2 - Ventricular tachycardia (12) Peripheral arterial occlusive disease Status: Chronic Current Visit: No Code(s): I77.9 - Disorder of arteries and arterioles, unspecified Type of Wound Date of Service: 07/27/18 Chief Complaint: Chronic ulcerations of the distal left lower extremity History of Wound: This is a 77-year-old male who presents to the [facility] accompanied by his daughter. He has ulcerations of the distal left lower extremity, said to be present for over a year. It appears as though it occurred spontaneously, rather than due to trauma or other obvious causes. Most recently, he has been applying A & D ointment topically. Cellulitis was recently diagnosed, and the patient has recently completed a course of oral Augmentin, which has decreased and essentially resolved the associated erythema and cellulitis. Patient has a known history of peripheral arterial occlusive disease, and has been under the care of a vascular surgeon in [place], [place]. His most recent noninvasive lower extremity arterial study was performed in March 2016, which revealed an ankle-brachial index of 0.33 on the right and 0.82 on the left. The right digital?brachial index was 0.12, and the left digital-brachial index was 0.48. Monophasic waveforms were noted at right ankle level, and triphasic waveforms were noted at left ankle level. When seen and evaluated by the vascular surgeon in 2017, no specific intervention was recommended. The patient's mobility is somewhat limited, and he does not ambulate liberally. He ambulates using a walker. He claims to sleep on a flat mattress at night, though sits for long hours ideally each day. He denies significant swelling in his lower extremities. He also denies a history of thrombophlebitis. Several months ago, the patient was diagnosed with lung cancer, and has recently initiated chemotherapy. A Port-A-Cath was inserted on June 19, 2018, for chemotherapy purposes. Progress of Wound: Patient seemed to have tolerated the Helena well and wound beds are moist and pink without any signs of infection at this time. - Physical Exam Vital Signs Temp Pulse Resp BP 96.8 F L 86 16 130/69 H 07/27/18 13:29 07/27/18 13:29 07/27/18 13:29 07/27/18 13:29 General: Alert, Oriented x3, Cooperative, No apparent distress HEENT: Atraumatic Oral: Moist Mucosa Lungs: Clear to auscultation Cardiovascular: Regular rate Abdomen: Soft, Non Tender, Obese Extremities: No clubbing, No cyanosis, Diminished Peripheral Pulses, Edema - Generalized bilateral lower extremity edema Skin: Ulcer/ Wound - Ulcers to left lower extremity with adherent slough, some surrounding dry skin present otherwise no signs of infection or cellulitis at this time, minimal redness, no warmth. Wound Measurements and Assessment WC - Nurse 1 - General Ulcer Measurement Start: 07/20/18 13:30 Freq: Status: Active Protocol: Activity Type Activity Date Activity User E-Sign Co-Sign Detail Recorded Client Recorded Date Recorded By Document 07/27/18 13:29 [facility] [id number] 07/27/18 13:39 [facility] 07/27/18 13:29 Wound Center Nurse 1 [Ulcer Assessment] #2 POSTERIOR LLE -Combined with other wound No -Current Size (cm) - Length 1.3 -Current Size (cm) - Width 0.8 -Current Size (cm) - Depth 0.1 -Total Square Cm 1.04 -Photo Taken No -Epithelialization None Present -Tunneling No -Undermining/Tunneling No -Circular Undermining No -Exudate Amt Small -Exudate Type Serosanguineous -Wound Margin Distinct, Outline Attached -Granulation Amt Small (1-33%) -Granulation Quality Red -Slough/Fibrin Yes -Necrosis Amt Large (67-100%) -Necrotic Tissue Type Adherent Slough -Texture (Keke-wound Skin Appearance) Assessed Scarring -Moisture (Keke-wound Skin Appearance Assessed ) Dry/Scaly -Color (Keke-wound Skin Appearance) Assessed Erythema -Temperature (Keke-wound Skin No Abnormality Appearance) (Pt Warm) -Tenderness on Palpation (Keke-wound No Skin Appearance) -Ulcer Cleansing Wound Cleanser -Foul Odor after Cleansing No -Anesthetic Used 5% Lidocaine Gel #1 LEFT MOREJON -Combined with other wound No -Current Size (cm) - Length 1.9 -Current Size (cm) - Width 0.9 -Current Size (cm) - Depth 0.2 -Total Square Cm 1.71 -Photo Taken No -Epithelialization None Present -Tunneling No -Undermining/Tunneling No -Circular Undermining No -Exudate Amt Small -Exudate Type Serosanguineous -Wound Margin Distinct, Outline Attached -Granulation Amt Small (1-33%) -Granulation Quality Red -Slough/Fibrin Yes -Necrosis Amt Large (67-100%) -Necrotic Tissue Type Adherent Slough -Texture (Keke-wound Skin Appearance) Assessed Scarring -Moisture (Keke-wound Skin Appearance Assessed ) Dry/Scaly -Color (Keke-wound Skin Appearance) Assessed Erythema -Temperature (Keke-wound Skin No Abnormality Appearance) (Pt Warm) -Tenderness on Palpation (Keke-wound No Skin Appearance) -Ulcer Cleansing Rinsed/ Irrigated with Saline -Foul Odor after Cleansing No -Anesthetic Used 5% Lidocaine Gel [Edema Assessment] -Lower Limb Edema Present Yes -Left Calf (cm) 36.3 -Left Ankle (cm) 21 Neurological: Neuro grossly intact Psych/Mental Status: Normal Affect, Appropriate, Alert and oriented to time, place, person, mood and affect Debridement Note Post-Debridement Measurements/Treatment WC - Nurse 2 - General Ulcer CM Notes Start: 07/20/18 13:30 Freq: Status: Active Protocol: Activity Type Activity Date Activity User E-Sign Co-Sign Detail Recorded Client Recorded Date Recorded By Document 07/20/18 14:01 AN [id number] 07/20/18 14:07 AN 07/20/18 14:01 Wound Center Nurse 2 #2 POSTERIOR LLE -Time 14:02 -Correct Patient Yes -Correct Side, Site, Position Yes -Correct Procedure Yes -Procedure Performed Yes -Type of Procedure Debridement -Clinical Debridement Subcutaneous -Post Debridement Size (cm) - Length 2 -Post Debridement Size (cm) - Width 3.4 -Post Debridement Size (cm) - Depth 0.1 -Total Square Cm 6.8 -Wound/Ulcer Outcome Amputation -Ulcer Cleansing Rinsed/ Irrigated with Saline -Foul Odor after Cleansing No -Bioengineered Tissue No -Bleeding Controlled with Pressure -Offloading No -Treatment Response Procedure Tolerated Well #1 LEFT MOREJON -Time 14:03 -Correct Patient Yes -Correct Side, Site, Position Yes -Correct Procedure Yes -Procedure Performed Yes -Type of Procedure Debridement -Clinical Debridement Subcutaneous -Post Debridement Size (cm) - Length 2.1 -Post Debridement Size (cm) - Width 1 -Post Debridement Size (cm) - Depth 0.1 -Total Square Cm 2.1 -Wound/Ulcer Outcome Not Healed -Ulcer Cleansing Rinsed/ Irrigated with Saline -Foul Odor after Cleansing No -Bioengineered Tissue No -Bleeding Controlled with Pressure -Offloading No -Treatment Response Procedure Tolerated Well Pain Scale: 0-10 Numeric Is Patient Pain Free? Yes Wound debrided: Left lower extremity ulcers Type of Debridement: Excisional debridement Anesthesia Used: 5% Lidocaine Gel Depth: in the subcutaneous layer Percentage of wound debrided: 100 Instrument Used: 5mm curette Tissue Removed: Slough and devitalized tissue Severity: Fat Layer Exposed Amount of bleeding with debridement: Mild Bleeding Controlled with: Pressure Patient did not tolerate procedure well - Due to pain he did not tolerate the debridements well and therefore still large amount of slough present in wound bed Assessment/Plan Active Problems (Last Reviewed 07/20/18 @ 10:44 by Maribeth Montaño) Open wound of left lower extremity (Chronic) Ulcer of leg, chronic, left (Chronic) Assessment: This is a 77-year-old male with multiple pre-existing medical problems. These are detailed above. Most notable, the patient has peripheral arterial occlusive disease in his lower extremities, previously diagnosed, for which she is under the ongoing care of a vascular surgeon in [place], [place]. His most recent arterial study reveals severe arterial occlusive disease in the right lower extremity, and moderate to severe arterial occlusive disease in the left lower extremity. Patient is also recently been diagnosed with lung cancer, which is metastatic to liver and elsewhere. He presents with a history of ulcerations on the left calf, which have been present for more than 1 year. They appear to have occurred spontaneously, likely the result of blistering, which may have occurred due to dependency and swelling. Patient has recently undergone laboratory studies, and is scheduled for a repeat of his laboratory studies tomorrow. Results which are currently available are as follows: White blood count 19,100, hemoglobin 13.4, hematocrit 39.3, platelets 78,000, sodium 135, potassium 3.8, chloride 96, BUN 13, creatinine 0.87, glucose 115, calcium 8.7, total bilirubin 0.30, AST 17, ALT 26, alkaline phosphatase 110, total protein 6.8, albumin 3.3, PT 13.4, INR 1.0, PTT 35.6. Plan: Transfer care from Dr. Enrique. Patient and his daughter have been advised to elevate his lower extremities as much as possible. Elevation is to be implemented during daytime hours. His legs are to be elevated to heart level, or higher, as much as possible. He is to continue sleeping on a flat mattress at night. Prolonged idle sitting has been discouraged. Activity and ambulation has been encouraged. Weight loss has been recommended. Adequate nutrition has also been recommended. We are to implement the use of Santyl applied topically daily and cover with gauze. The patient and his daughter are to be instructed in the appropriate means of application. We are to use mild compression using Tubigrip's, though patient often refuses. Patient is to return in 1 week for reassessment. Despite the patient's known peripheral arterial occlusive disease, we are to forego vascular surgery consultation, and will monitor the patient's status over the next few weeks. Given his known metastatic lung cancer, aggressive intervention in terms of lower extremity revascularization may not be advisable as an early treatment modality. Conservative measures will be implemented initially, and results monitored. This note was generated with [employer]ation software. It may contain incorrect words, spelling, and punctuation that were not noted in checking the note before signing. Code Visit 111xxx-113xx: 89702 Leda subq tissue 20 sq cm/<
[2018-08-10 13:42] VITALS: BP 95/63; PULSE 90; RESP 18; TEMP 36.1; BMI 31.4
--- NOTE | 2018-08-10 21:08 | PCM.WC.PN ---
(1) Ulcer of leg, chronic, left Status: Chronic Qualifiers: Code(s): L97.929 - Non-pressure chronic ulcer of unspecified part of left lower leg with unspecified severity (2) Open wound of left lower extremity Status: Chronic Qualifiers: Code(s): S81.802A - Unspecified open wound, left lower leg, initial encounter (3) Neuroendocrine carcinoma of lung Status: Acute Code(s): C7A.8 - Other malignant neuroendocrine tumors (4) Regional lymph node metastasis present Status: Acute Code(s): C77.9 - Secondary and unspecified malignant neoplasm of lymph node, unspecified (5) Atherosclerotic heart disease of [place] coronary artery without angina pectoris Status: Chronic Qualifiers: Code(s): I25.10 - Atherosclerotic heart disease of [place] coronary artery without angina pectoris (6) CHF (congestive heart failure) Status: Chronic Code(s): I50.9 - Heart failure, unspecified (7) Diabetes Status: Chronic Code(s): E11.9 - Type 2 diabetes mellitus without complications (8) Edema Status: Chronic Code(s): R60.9 - Edema, unspecified (9) Ischemic cardiomyopathy Status: Chronic Code(s): I25.5 - Ischemic cardiomyopathy (10) PVD (peripheral vascular disease) Status: Chronic Code(s): I73.9 - Peripheral vascular disease, unspecified (11) Paroxysmal ventricular tachycardia Status: Chronic Code(s): I47.2 - Ventricular tachycardia (12) Peripheral arterial occlusive disease Status: Chronic Code(s): I77.9 - Disorder of arteries and arterioles, unspecified Type of Wound Date of Service: 08/10/18 Chief Complaint: Chronic ulcerations of the distal left lower extremity History of Wound: This is a 77-year-old male who presents to the [facility] accompanied by his daughter. He has ulcerations of the distal left lower extremity, said to be present for over a year. It appears as though it occurred spontaneously, rather than due to trauma or other obvious causes. Most recently, he has been applying A & D ointment topically. Cellulitis was recently diagnosed, and the patient has recently completed a course of oral Augmentin, which has decreased and essentially resolved the associated erythema and cellulitis. Patient has a known history of peripheral arterial occlusive disease, and has been under the care of a vascular surgeon in [place], [place]. His most recent noninvasive lower extremity arterial study was performed in March 2016, which revealed an ankle-brachial index of 0.33 on the right and 0.82 on the left. The right digital?brachial index was 0.12, and the left digital-brachial index was 0.48. Monophasic waveforms were noted at right ankle level, and triphasic waveforms were noted at left ankle level. When seen and evaluated by the vascular surgeon in 2017, no specific intervention was recommended. The patient's mobility is somewhat limited, and he does not ambulate liberally. He ambulates using a walker. He claims to sleep on a flat mattress at night, though sits for long hours ideally each day. He denies significant swelling in his lower extremities. He also denies a history of thrombophlebitis. Several months ago, the patient was diagnosed with lung cancer, and has recently initiated chemotherapy. A Port-A-Cath was inserted on June 19, 2018, for chemotherapy purposes. Progress of Wound: Patient seemed to have tolerated the Santyl well and wound beds have a heavy amount of slough present but without any signs of infection at this time. Patient is refusing any further debridements to be done at the wound center and given his multiple comorbidities, would like to be placed on a palliative wound care plan. - Physical Exam Vital Signs Temp Pulse Resp BP 97 F L 90 18 95/63 08/10/18 13:42 08/10/18 13:42 08/10/18 13:42 08/10/18 13:42 General: Alert, Oriented x3, Cooperative, No apparent distress HEENT: Atraumatic Oral: Moist Mucosa Lungs: Diminished Cardiovascular: Regular rate Abdomen: Soft, Non Tender, Obese Extremities: No clubbing, No cyanosis, Diminished Peripheral Pulses - +1 bilateral dorsal pedis pulses, Edema - Generalized bilateral lower extremity edema Skin: Ulcer/ Wound - Ulceration to left anterior and posterior lower extremity with adherent slough, no obvious signs of infection at this time. Neurological: Neuro grossly intact Psych/Mental Status: Normal Affect, Appropriate, Alert and oriented to time, place, person, mood and affect Debridement Note Post-Debridement Measurements/Treatment WC - Nurse 2 - General Ulcer CM Notes Start: 07/20/18 13:30 Freq: Status: Active Protocol: Activity Type Activity Date Activity User E-Sign Co-Sign Detail Recorded Client Recorded Date Recorded By Document 07/20/18 14:01 AN [id number] 07/20/18 14:07 AN Document 08/10/18 18:01 AN [id number] 08/10/18 18:03 AN 07/20/18 08/10/18 14:01 18:01 Wound Center Nurse 2 #2 POSTERIOR LLE -Time 14:02 13:35 -Correct Patient Yes Yes -Correct Side, Site, Position Yes Yes -Correct Procedure Yes Yes -Procedure Performed Yes No -Type of Procedure Debridement -Clinical Debridement Subcutaneous -Post Debridement Size (cm) - Length 2 1.5 -Post Debridement Size (cm) - Width 3.4 0.9 -Post Debridement Size (cm) - Depth 0.1 0.1 -Total Square Cm 6.8 1.35 -Wound/Ulcer Outcome Amputation Not Healed -Ulcer Cleansing Rinsed/ Rinsed/ Irrigated with Irrigated with Saline Saline -Foul Odor after Cleansing No No -Bioengineered Tissue No No -Bleeding Controlled with Pressure -Offloading No -Treatment Response Procedure Tolerated Well #1 LEFT MOREJON -Time 14:03 13:35 -Correct Patient Yes Yes -Correct Side, Site, Position Yes Yes -Correct Procedure Yes Yes -Procedure Performed Yes No -Type of Procedure Debridement -Clinical Debridement Subcutaneous -Post Debridement Size (cm) - Length 2.1 2.0 -Post Debridement Size (cm) - Width 1 0.8 -Post Debridement Size (cm) - Depth 0.1 0.1 -Total Square Cm 2.1 1.60 -Wound/Ulcer Outcome Not Healed Not Healed -Ulcer Cleansing Rinsed/ Rinsed/ Irrigated with Irrigated with Saline Saline -Foul Odor after Cleansing No No -Bioengineered Tissue No -Bleeding Controlled with Pressure -Offloading No -Treatment Response Procedure Tolerated Well Pain Scale: 0-10 Numeric Is Patient Pain Free? Yes Yes No debridement was completed today - Patient refuses all debridements Assessment/Plan Assessment: This is a 77-year-old male with multiple pre-existing medical problems. These are detailed above. Most notable, the patient has peripheral arterial occlusive disease in his lower extremities, previously diagnosed, for which she is under the ongoing care of a vascular surgeon in [place], [place]. His most recent arterial study reveals severe arterial occlusive disease in the right lower extremity, and moderate to severe arterial occlusive disease in the left lower extremity. Patient is also recently been diagnosed with lung cancer, which is metastatic to liver and elsewhere. He presents with a history of ulcerations on the left calf, which have been present for more than 1 year. They appear to have occurred spontaneously, likely the result of blistering, which may have occurred due to dependency and swelling. Patient has recently undergone laboratory studies, and is scheduled for a repeat of his laboratory studies tomorrow. Results which are currently available are as follows: White blood count 19,100, hemoglobin 13.4, hematocrit 39.3, platelets 78,000, sodium 135, potassium 3.8, chloride 96, BUN 13, creatinine 0.87, glucose 115, calcium 8.7, total bilirubin 0.30, AST 17, ALT 26, alkaline phosphatase 110, total protein 6.8, albumin 3.3, PT 13.4, INR 1.0, PTT 35.6. Plan: Transfer care from Dr. Enrique. Patient and his daughter have been advised to elevate his lower extremities as much as possible. Elevation is to be implemented during daytime hours. His legs are to be elevated to heart level, or higher, as much as possible. He is to continue sleeping on a flat mattress at night. Prolonged idle sitting has been discouraged. Activity and ambulation has been encouraged. Weight loss has been recommended. Adequate nutrition has also been recommended. We are to implement the use of Santyl applied topically daily and cover with gauze. The patient and his daughter are to be instructed in the appropriate means of application. We are to use mild compression using Tubigrip's, though patient often refuses. Patient is to return in 4 weeks for reassessment, as he refuses weekly debridements and would like to be placed on a palliative wound care plan. Despite the patient's known peripheral arterial occlusive disease, we are to forego vascular surgery consultation, and will monitor the patient's status over the next few weeks. Given his known metastatic lung cancer, aggressive intervention in terms of lower extremity revascularization may not be advisable as an early treatment modality. Conservative measures will be implemented initially, and results monitored. This note was generated with [employer] software. It may contain incorrect words, spelling, and punctuation that were not noted in checking the note before signing. Code Visit Office Visits / Consults: [id number] OV L3 Est
== END 2018-08-11 23:59 ==
LOC: WC 13:30
PROVIDERS: Family Provider Family Medicine; PCP Family Medicine; Visit Provider Surgery
DX: E11.621 Type 2 diabetes mellitus with foot ulcer (principal); E11.51 Type 2 diabetes mellitus with diabetic peripheral angiopathy without gangrene; L97.822 Non-pressure chronic ulcer of other part of left lower leg with fat layer exposed; C7A.090 Malignant carcinoid tumor of the bronchus and lung; C77.9 Secondary and unspecified malignant neoplasm of lymph node, unspecified; I25.10 Atherosclerotic heart disease of native coronary artery without angina pectoris; I11.0 Hypertensive heart disease with heart failure; I50.9 Heart failure, unspecified; R60.0 Localized edema
CPT/HCPCS: 11042; 99212; G0463

== ENCOUNTER → 2018-08-17 13:50 | Outpatient (CLI) | payer MEDICARE, OTHER, SELFPAY ==
[2018-08-01 09:30] VITALS: BMI 31.0
[2018-08-15 10:09] VITALS: BMI 31.3
--- NOTE | 2018-08-17 13:52 | CT_ITS ---
STUDY: CT ABDOMEN AND PELVIS WITHOUT CONTRAST REASON FOR EXAM: Male, 78 years old. Neuroendocrine carcinoma of lung, small cell cancer, status post 2 rounds of chemotherapy RADIATION DOSAGE (If Supplied By Facility): CTDIvol = ( 25.46 ) mGy, DLP = ( 1397.67 ) mGycm TECHNIQUE: Transaxial images were obtained from the dome of the diaphragm to the symphysis pubis without oral contrast, and without intravenous contrast. Sagittal and coronal images were reconstructed. Individualized dose optimization techniques were used for this CT. COMPARISON: None FINDINGS: There is a small left-sided effusion. There is a tiny calcified granuloma of the right lower lobe. There is a pleural-based 3 mm nodule of the right middle lobe. There is a 6 mm pleural-based nodule of the left lower lobe. Coronary arterial and valvular calcifications are present. There is a heterogeneous low-attenuation mass of the left hepatic lobe measuring 7.1 x 3.8 x 3.4 cm. Gallbladder contents are hyperdense which may represent vicarious excretion of contrast agent. Normal spleen. Normal pancreas. There is a 2.4 x 2.1 cm right adrenal mass. The left adrenal appears normal. There is a 1.1 cm probable cyst of the anterior right kidney. There is right perinephric fatty stranding. The left kidney appears within normal limits. Left perinephric fatty stranding is also noted. Normal visualized stomach. Normal small intestine. There is diffuse colonic diverticulosis with no evidence of diverticulitis. The appendix is visualized and appears normal. There are calcified plaques of the abdominal aorta and common iliac arteries. Normal inferior vena cava. Normal retroperitoneum. Normal urinary bladder. The prostate is mildly enlarged. The seminal vesicles and seminal vesicle angles appear normal. There is a prominent left inguinal node measuring 1.4 cm in short axis. Normal osseous structures. CT/Abdomen/Pelvis without Cont IMPRESSION: Small left-sided pleural effusion. Bilateral pulmonary nodules as detailed above. Heterogeneous low-attenuation mass of the left hepatic lobe measuring 7.1 x 3.8 x 3.4 cm suspicious for metastatic lesion. Gallbladder contents are hyperdense which may represent vicarious excretion of intravenous contrast agent. 2.4 x 2.1 cm right adrenal mass. Metastatic disease should be considered. Bilateral perinephric fatty stranding. Colonic diverticulosis with no evidence of associated diverticulitis. Enlarged prostate. Prominent left inguinal node measuring 1.4 cm in short axis. Electronically Signed: Lloyd Kirkland MD at 23:23 EDT , Service support ,
--- NOTE | 2018-08-17 13:52 | CT_ITS ---
STUDY: CT CHEST WITHOUT CONTRAST REASON FOR EXAM: Male, 78 years old. Neuroendocrine carcinoma of lung, small cell lung cancer, status post 2 rounds of chemotherapy. RADIATION DOSAGE (If Supplied By Facility): CTDIvol = ( 24.80 ) mGy, DLP = ( 873.43 ) mGycm TECHNIQUE: Transaxial imaging was performed without the administration of intravenous contrast material. Individualized dose optimization techniques were used for this CT. COMPARISON: Prior study of 04/13/2018 FINDINGS: There is a spiculated mass with extension to the medial pleural surface of the left upper lobe measuring 2.5 x 1.3 x 5.3 cm. There is an adjacent satellite nodule medially measuring 1.1 cm. There is a 7.4 mm left lingular nodule image 64 series 6. There is a pleural-based 6 mm nodule of the left lower lobe image 74 series 6. There are several small calcified granulomas of the right upper and lower lobe. There is a small left-sided pleural effusion. The heart size is within normal limits. There is no pericardial effusion. Coronary valvular and arterial calcifications are present. Normal mediastinum. There is a left hilar mass/adenopathy difficult to assess with the absence of intravenous contrast, measuring overall approximately 5.4 x 3.2 x 3.2 cm. Calcified left hilar nodes are present. Several small calcified right hilar nodes are also noted. Normal unenhanced pulmonary arteries. There are densely calcified plaques of the thoracic aorta. There is mild diffuse endplate spondylosis of the thoracic spine. There is a small sclerotic focus of the posterior aspect of the T5 body, stable in the interval. Abdominal findings are reported separately. CT/Chest without Contrast IMPRESSION: Spiculated mass of the left upper lobe with extension to the medial pleural surface measuring 2.5 x 1.3 x 5.3 cm, appearing slightly increased in size from the previous study. There is an adjacent satellite nodule medial to this mass measuring 1.1 cm, stable in the interval. There is left hilar mass/adenopathy, difficulty to assess with the absence of intravenous contrast, measuring overall approximately 5.4 x 3.2 x 3.2 cm. This appears minimally decreased in size in the interval. 7.4 mm left lingular nodule, not previously seen. This may have been present but obscured by left lingular atelectasis. Small sclerotic focus of the posterior aspect of the T5 body, stable in the interval. Other calcified granulomas and small nodules, stable in the interval. Electronically Signed: Lloyd Kirkland MD at 23:58 EDT , Service support ,
== END ==
PROVIDERS: Family Provider Family Medicine; PCP Family Medicine; Referring Provider Internal Medicine Hematology & Oncology; Visit Provider Internal Medicine Hematology & Oncology
DX: C34.90 Malignant neoplasm of unspecified part of unspecified bronchus or lung (principal)
CPT/HCPCS: 71250; 74176

== ENCOUNTER → 2018-10-19 12:22 | Outpatient (CLI) | payer MEDICARE, OTHER, SELFPAY ==
[2018-10-03 09:38] VITALS: BMI 29.7
--- NOTE | 2018-10-19 12:24 | CT_ITS ---
STUDY: CT CHEST WITHOUT CONTRAST REASON FOR EXAM: Male, 78 years old. Restaging lung cancer RADIATION DOSAGE (If Supplied By Facility): CTDIvol = ( 22.61 ) mGy, DLP = ( 1632.35 ) mGycm TECHNIQUE: Transaxial imaging was performed without the administration of intravenous contrast material. Individualized dose optimization techniques were used for this CT. COMPARISON: 08/17/2018 FINDINGS: Right chest wall port. Stable 2 mm right upper lobe nodule on image 50 of series 6. Stable 3 mm right middle lobe nodule on image 78. Spiculated mass is present in the left upper lobe. The lesion extends to the superior medial pleural surface. On coronal image 150, the lesion has a measurement of 5.9 x 2.8 cm. On axial image 35, has a measurement of 2.7 x 2.0 cm. The superior portion of the lesion has slightly increased in size compared to most recent study. The remainder of the lesion is unchanged. Stable small left pleural effusion. Stable lingular nodules measuring 13 mm more anteriorly and 9 mm more posteriorly. Normal heart and pericardium. A stable ill-defined left hilar mass is present measuring 6.1 x 4.0 cm on image 51 of series 6. This encases and narrows the left upper lobe bronchus. This extends into the prevascular space. Normal unenhanced pulmonary arteries. Normal aorta arch and descending thoracic aorta. Stable sclerotic focus in the T5 vertebral body. Ill-defined low density lesions are present in the liver suspicious for metastatic disease. CT/Chest without Contrast IMPRESSION: Interval increase in the superior aspect of a previously described left upper lobe mass. Stable left hilar mass extending to the prevascular station. Stable lingular nodules. Stable right lung nodules. Ill-defined low density lesions are present in the liver suspicious for metastatic disease. Electronically Signed: Meir Ramirez MD at 19:15 EDT Tel , Service support ,
--- NOTE | 2018-10-19 12:24 | CT_ITS ---
STUDY: CT ABDOMEN WITHOUT CONTRAST REASON FOR EXAM: Male, 78 years old. Chest pain, history of lung cancer RADIATION DOSAGE (If Supplied By Facility): CTDIvol = ( 22.61 ) mGy, DLP = ( 1632.35 ) mGycm TECHNIQUE: Transaxial images were obtained without intravenous contrast, and oral contrast. Sagittal and coronal images were reconstructed. Individualized dose optimization techniques were used for this CT. COMPARISON: 08/17/2018 FINDINGS: There are chronic interstitial fibrotic changes of the lung bases with stable small left pleural effusion. The visualized portions of the heart are within normal limits. Stable 7.1 x 3.8 x 3.4 cm hypoattenuated mass in the left lobe of the liver, likely metastasis. No other discrete lesion. Hyperdense sludge within the gallbladder but no wall thickening or pericholecystic inflammation. Normal spleen. Normal pancreas. There is a stable 2.5 cm right adrenal mass. Normal left adrenal gland. No obstructive uropathy, there is nonspecific induration of the perinephric fat. Normal visualized stomach. Normal small intestine. There are multiple colonic diverticula consistent with diverticulosis. There is non-visualization of the appendix. There is diffuse atherosclerotic calcification of the abdominal aorta, without a demonstrated aneurysm. Normal inferior vena cava. Normal retroperitoneum. Normal abdominal wall. There are diffuse degenerative changes of the visualized lumbar spine. CT/Abdomen without IV Contrast IMPRESSION: Stable small left pleural effusion, chronic interstitial changes in both lung bases otherwise. Stable 7.1 cm low-density lesion in the left lobe of the liver, likely metastasis Stable 2.5 cm right adrenal mass Nonspecific induration of the perinephric fat Degenerative bony changes Electronically Signed: Salomon Velazco MD at 14:02 EDT , Service support ,
== END ==
PROVIDERS: Family Provider Family Medicine; PCP Family Medicine; Referring Provider Internal Medicine Hematology & Oncology; Visit Provider Internal Medicine Hematology & Oncology
DX: C7A.8 Other malignant neuroendocrine tumors (principal); C78.7 Secondary malignant neoplasm of liver and intrahepatic bile duct; C77.9 Secondary and unspecified malignant neoplasm of lymph node, unspecified
CPT/HCPCS: 71250; 74150; 80048